=== PATIENT | female | born 1945 | race Caucasian/White ===

== ENCOUNTER 2018-04-06 06:12 | Day surgery (SDC) | payer MEDICARE, BC, SELFPAY ==
[2018-04-06] VITALS (7 sets, daily range): BP systolic 135–156; BP diastolic 55–69; PULSE 64–72; RESP 16; TEMP 36.3–36.5; O2SAT 96–100; BMI 25.7
--- NOTE | 2018-04-06 | LES_PTH ---
PATIENT: GEORGE PETERSON [place] [facility] [place][id number] AGE/SX: 72/F ROOM: RE04/06/[address]: Dr. Yann Locke MD : 1945 BED: DIS: 04/06/2018 SPEC #: [id number] RECD: 04/06/18 09:40 STATUS: AUGUSTUS ANDERSON #: [id number] PADMA: 04/06/18 00:[address]: Yann Locke DEPT: SURGICAL PATHOLOGY RECD BY: Amber Otto ENTERED: 04/06/18 10:18 SP TYPE: Lesion OTHR DR: Dr. Sanjay Holt MD Tissues: A - Skin of scalp, NOS B - Skin of scalp, NOS C - Skin of scalp, NOS Procedures: Frozen Section (charge) Surgery Specimen Level IV Frozen (no charge) HEADER OPERATION: Excision lesion, skin graft or flap, postauricular area PRE-OP DIAGNOSIS: 2 cm basal cell carcinoma scar left postauricular area by the earlobe with positive margins; 9 mm nodular lesion top of scalp TISSUE SUBMITTED: A ? Lesion top of scalp at vertex sent to lab for FS at 0936, B ? Left postauricular carcinoma scar, suture at 12 o?clock, C ? Basal cell carcinoma top of scalp, suture at 12 o?clock FROZEN SECTION DIAGNOSIS A. Lesion top of scalp, shave biopsy: Basal cell carcinoma. LIANE:miladis 04/06/18 MICROSCOPIC DIAGNOSIS A. Lesion top of scalp, shave biopsy: Basal cell carcinoma. B. Left postauricular carcinoma scar, excisional biopsy: Focal basal cell carcinoma, completely excised. Dermal fibrosis consistent with scar. C. Carcinoma of top of scalp, excisional biopsy: Basal cell carcinoma. See comment. Focal ulceration consistent with site of specimen A. Solar elastosis. SJ:miladis 04/07/18 COMMENT C. !2 o?clock tip is focally positive for tumor. Other margins are free of tumor. Case has been reviewed in consultation with Dr. Soto who concurs with the above diagnosis. IDC:AM MICROSCOPIC DESCRIPTION Slides are reviewed. GROSS DESCRIPTION A - Received fresh for frozen section diagnosis labeled with the patient's name is a specimen designated lesion at top of scalp. The specimen consists of a shave biopsy of menendez-white skin measuring 1 x 0.7 x 0.1 cm. The specimen is inked, serially sectioned and submitted entirely for frozen section diagnosis in one cassette. / : 04/06/18 B - Received in fixative is one container labeled with the patient's name and designated postauricular carcinoma scar, suture at 12 o'clock. The specimen consists of a menendez-white skin ellipse measuring 3.2 x 0.7 cm and up to 0.2 cm in thickness. The specimen has a suture identifying 12 o?clock position. The specimen is inked at follows: 12 o?clock tip ? yellow, 6 o?clock tip ? green, 3 o?clock margin ? black and 9 o?clock margin ? blue. The specimen is serially sectioned and submitted entirely in two cassettes. Cassette 1 contains the 6 and 12 o?clock tip. / : 04/06/18 C - Received in fixative is one container labeled with the patient's name and designated carcinoma top of scalp, suture at 12 o'clock. The specimen consists of a valeria-shaped piece of menendez-white skin measuring 2 x 1.5 cm and up to 0.5 cm in thickness. A focal area of ulceration is noted measuring 1 cm in greatest dimension consistent with site of specimen A. The specimen is inked as follows: 12-3 o?clock ? black, 3-9 o?clock ? blue, 6-9 o?clock ? green and 9-12 o?clock ? yellow. The specimen is serially sectioned and submitted entirely in two cassettes as follows: 1 ? 3, 6, 9 and 12 o?clock tips, 2 ? rest of the specimen. / : 04/06/18 TC:0 CPT: 61684 x3, 99098
--- NOTE | 2018-04-06 00:06 | PCM.HP.BLA ---
History and Physical Date of Admission: 04/06/18 HISTORY OR PRESENT ILLNESS 72 year old woman presents with a basal cell carcinoma left postauricular area by the earlobe. The lesion was biopsied on 11/18/17 which showed a basal cell carcinoma, nodular and micronodular, with positive margins. She underwent re-excision on 11/27/17 which showed residual basal cell carcinoma with positive margins. She presents today for further evaluation for surgical options for treatment. She also has concerns about a lesion on the top of scalp that is nodular with irregular borders. She denies any trauma. She denies any fever. She denies any recent infection. She denies any bleeding. PAST MEDICAL HISTORY Hearing problem PAST SURGICAL HISTORY Jaw fracture MEDICATIONS Tylenol. Motrin. MVI. Zoloft. ALLERGIES None. SOCIAL HISTORY Smoking Status: Never smoker alcohol intake: never substance use type: does not use FAMILY HISTORY Mother - , Kidney disease REVIEW OF SYSTEMS General - Denies fever, fatigue, and weight loss. Eyes - Denies cataracts and glaucoma. ENT - Denies nasal congestion and sore throat. Endocrine - Denies excessive thirst and urination. Skin - Has basal cell carcinoma left postauricular area by the earlobe with positive margins. Has enlarging lesion top of scalp. Musculoskeletal - Denies joint pain, joint stiffness, weakness of muscles and joints, back pain, and arthritis. Neuro - Denies headaches. Cardiovascular - Denies chest pain, fatigue, and shortness of breath with exertion. Psych - Denies anxiety and depression. Respiratory - Denies chronic cough and shortness of breath. Gastrointestinal - Denies nausea, vomiting, diarrhea, and constipation. Hematologic - Denies abnormal bruising and bleeding. Genitourinary - Denies hematuria and urinary frequency. PHYSICAL EXAMINATION General - Alert and Oriented HEENT - PERRL. EOMI. Throat is clear. On the left postauricular area by the earlobe is a 2 cm scar that is healed from previous excision basal cell carcinoma with positive margins. On the top of scalp is a 9 mm nodular lesion that has irregular borders. No ulceration. Lesion is nontender. Neck - Supple and nontender. No cervical adenopathy. No suspicious lesions noted. Lungs - Clear to auscultation. Heart - Regular rate and rhythm. Abdomen - Soft and nondistended. Extremities - FROM. No axillary adenopathy. Radial pulses are palpable. No suspicious lesions noted. Neuro - CN II-XII grossly intact. Psych - Normal mood and affect. ASSESSMENT 1. 2 cm basal cell carcinoma scar left postauricular area by the earlobe with positive margins. 2. 9 mm nodular lesion top of scalp. PLAN Recommend re-excision of this basal cell carcinoma scar left postauricular area by the earlobe with positive margins. Will excise with a 1 cm margin with probable skin grafting and possible skin flap reconstruction. Will also excise the lesion top of scalp and send to Pathology for analysis to rule out carcinoma. If carcinoma is present, then further excision will be done with skin grafting. Surgery will be done under local anesthesia and IV sedation on an outpatient basis. Patient was informed of the risks and complications of the procedure including alternatives to surgery. These were discussed with the patient personally. Patient voices understanding and wishes to proceed. Some of the risks and complications were included in a form from the [employer].
[2018-04-06] MEDS: Mupirocin Ointment 22gm Tube 1 APPLIC (09:59)
--- NOTE | 2018-04-06 10:32 | PCM.IMDPSTOP ---
Immediate Post-Op Note Date of Procedure: 04/06/18 Primary Surgeon/Physician: Yann Locke quarter doper: Kelvin Carroll. Pre-Operative Diagnosis: 1. 2 cm basal cell carcinoma scar left postauricular area by the earlobe with positive margins. 2. 9 mm nodular lesion top of scalp at vertex. Post-Operative Diagnosis: 1. 2 cm basal cell carcinoma scar left postauricular area by the earlobe with positive margins. 2. 9 mm basal cell carcinoma top of scalp at vertex. Surgery/Procedure Performed:: 1. Excision 2 cm basal cell carcinoma scar left postauricular area by the earlobe with FTSG reconstruction from left neck (8 cm2). 2. Excision 9 mm basal cell carcinoma top of scalp at vertex with rhomboid transposition scalp skin reconstruction (2.25 cm2). Description of Surgical Findings:: 72 year old woman presents with a basal cell carcinoma left postauricular area by the earlobe. The lesion was biopsied on 11/18/17 which showed a basal cell carcinoma, nodular and micronodular, with positive margins. She underwent re-excision on 11/27/17 which showed residual basal cell carcinoma with positive margins. She presents today for further evaluation for surgical options for treatment. She also has concerns about a lesion on the top of scalp that is nodular with irregular borders. She denies any trauma. She denies any fever. She denies any recent infection. She denies any bleeding. Today the patient underwent excision 2 cm basal cell carcinoma scar left postauricular area by the earlobe with FTSG reconstruction from left neck (8 cm2) and excision 9 mm basal cell carcinoma top of scalp at vertex with rhomboid transposition scalp skin reconstruction (2.25 cm2). Frozen section top of scalp at the vertex - basal cell carcinoma. Estimated Blood Loss: 10 ml. Specimen's removed: 1. Basal cell carcinoma scar left post-auricular area by earlobe to Pathology. 2. Lesion top of scalp at vertex to Pathology as a frozen section. 3. Basal cell carcinoma top of scalp at vertex to Pathology. Drains: None. Type of Anesthesia:: Local MAC - xylocaine with epinephrine and IV sedation. - Admit VTE Documentation VTE Present on Admission: No VTE Mechan Device Prophylaxis: SCD's VTE Pharm Prophylaxis ordered?: No
--- NOTE | 2018-04-06 10:39 | PCM.DC ---
You will use the following diet at home:: No restrictions Discharge Activity: - - keep head elevated. no heavy lifting. May shower in (days): 6 - may shower after the skin graft dressing removed left ear. May resume sexual activity in: No Restrictions Weight Bearing Status: Weight bearing as tolerated Lifting Restrictions: 10 lbs. Keep extremity elevated above heart level: - - elevate head. Call your doctor if your incision/area has: Continuous Slow Oozing, Sudden Increased Bleeding, Increased Pain/ Swelling, Increased Redness, Foul Smelling Discharge, Swelling at the incision site Call your doctor if you observe: Fever of 101 or Higher, Coldness, Increased Pain, Shortness of breath, Chest pain, Calf discomfort, Uncontrolled pain Change Dressing in (Days):: 2 - left neck dressing only. Remove Dressing in (days):: 6 - will remove skin graft dressing left ear in office. Cleanse incision/area with: - - may get skin graft wet in the shower after the skin graft dressing left ear removed in office. Allergies/Adverse Reactions: Allergies No Known Allergies Allergy (Verified 03/30/18 09:47) Medications to take at Discharge Acetaminophen [Tylenol] 500 - 1,000 mg PO Q6H PRN PRN 03/30/18 Multivitamin [Multiple Vitamins] 1 each PO DAILY 03/30/18 Sertraline HCl [Zoloft] 50 mg PO DAILY 03/30/18 Clindamycin HCl [Cleocin] 300 mg PO TID #21 cap 04/06/18 Lactobacillus Acidophilus/Fos [Acidophilus Probiotic Tablet] 1 ea PO BID #20 tab 04/06/18 Oxycodone HCl/Acetaminophen [Percocet 5/325] 1 tab PO 4X/DAY PRN PRN 5 Days #20 tab 04/06/18 The following prescriptions were given: Oxycodone HCl/Acetaminophen [Percocet 5/325] 1 tab PO 4X/DAY PRN PRN 5 Days #20 tab PRN Reason: Pain Lactobacillus Acidophilus/Fos [Acidophilus Probiotic Tablet] 1 ea PO BID #20 tab Clindamycin HCl [Cleocin] 300 mg PO TID #21 cap Primary Care Physician: Sanjay Holt MD [Primary Care Provider] - Test Results: Test results from this visit will be discussed in further detail at your follow-up appointment, if applicable. Please Follow Up With: Yann Locke MD When: thursday04/12/18. call [phone] for appt. Proposed Discharge Date: 04/06/18
--- NOTE | 2018-04-06 19:38 | PCM.OPRPT ---
Report of Operation Date of Procedure: 04/06/18 Pre-Operative Diagnosis: 1. 2 cm basal cell carcinoma scar left postauricular area by the earlobe with positive margins. 2. 9 mm nodular lesion top of scalp at vertex. Post-Operative Diagnosis: 1. 2 cm basal cell carcinoma scar left postauricular area by the earlobe with positive margins. 2. 9 mm basal cell carcinoma top of scalp at vertex. Surgery/Procedure Performed:: 1. Excision 2 cm basal cell carcinoma scar left postauricular area by the earlobe with FTSG reconstruction from left neck (8 cm2). 2. Excision 9 mm basal cell carcinoma top of scalp at vertex with rhomboid transposition scalp skin reconstruction (2.25 cm2). Description of Surgical Findings:: 72 year old woman presents with a basal cell carcinoma left postauricular area by the earlobe. The lesion was biopsied on 11/18/17 which showed a basal cell carcinoma, nodular and micronodular, with positive margins. She underwent re-excision on 11/27/17 which showed residual basal cell carcinoma with positive margins. She presents today for further evaluation for surgical options for treatment. She also has concerns about a lesion on the top of scalp that is nodular with irregular borders. She denies any trauma. She denies any fever. She denies any recent infection. She denies any bleeding. Patient was informed of the risks and complications of the procedure including alternatives to surgery. These were discussed with the patient personally. Patient voices understanding and wishes to proceed. Some of the risks and complications were included in a form from the [employer]. Frozen section top of scalp at the vertex - basal cell carcinoma. rod buster: Kelvin Carroll. Type of Anesthesia:: Local MAC - xylocaine with epinephrine and IV sedation. Specimen's removed: 1. Basal cell carcinoma scar left post-auricular area by earlobe to Pathology. 2. Lesion top of scalp at vertex to Pathology as a frozen section. 3. Basal cell carcinoma top of scalp at vertex to Pathology. Drains: None. Estimated Blood Loss (mL): 10 ml. Description of Procedure: Patient was taken to OR in supine position and was given IV sedation. The left postauricular area and left neck area were prepped and draped in the usual fashion. SCD's were placed for DVT prophylaxis. Perioperative antibiotics were given intravenously. The left postauricular area and left neck area were infiltrated with xylocaine and epinephrine. After waiting 5 minutes for the anesthetic to take effect, I excised the basal cell carcinoma scar left postauricular area with a 1 cm margin in all directions. This made it a 4 cm excision. Some of the excision extended onto the posterior ear. A suture was marked at the 12 oclock position for pathology orientation. The lesion was sent to Pathology for analysis to rule out carcinoma at the margins. The size of the defect for skin grafting is 4 x 2 cm or 8 cm2. Hemostasis was obtained with electrocautery. I excised an ellipse of skin in the left neck down into the subcutaneous tissue. The subcutaneous tissue was removed from the undersurface of the dermis, thus making it a full thickness skin graft. The skin graft was placed in saline. The donor incision was closed in multiple layers after hemostasis was obtained with electrocautery. The deep dermis and subcutaneous tissue was approximated with 5-0 Monocryl interrupted sutures. The skin was approximated with 5-0 Prolene and 6-0 Prolene vertical mattress interrupted sutures. Antibiotic ointment was applied followed by an Op-Site dressing. The full thickness skin graft was applied to the left postauricular defect and secured to the skin edges with 4-0 Chromic simple interrupted sutures. 4-0 Chromic sutures were also used for central quilting stabilization. Antibiotic ointment was applied to the skin graft followed by xeroform gauze and cotton balls soaked in saline and secured to the skin with 4-0 Nylon tie over stent suture dressings. The patient was then placed in the lateral position to expose the lesion on the top of scalp at the vertex. This area was prepped and draped in the usual fashion. Using xylocaine with epinephrine, the lesion was infiltrated. After waiting 5 minutes for the anesthetic to take effect, the lesion top of scalp at the vertex was excised in an intradermal fashion and sent to Pathology for analysis as a frozen section. Frozen section showed a basal cell carcinoma. Therefore additional excision will be done. I shaw a rhomboid design with a 3 mm margin in all directions. Additional excision was done and a suture was placed at 12 oclock position for pathology orientation. The lesion was then sent to Pathology for analysis to rule out carcinoma at the margins. I designed a rhomboid flap adjacent to the defect. Incisions were made and a rhomboid flap was elevated at the level of the underlying galea and easily transposed into the defect with minimal tension and minimal distortion. Hemostasis was obtained with electrocautery. The rhomboid flap was transposed into the scalp skin defect and secured in multiple layers with 5-0 Monocryl interrupted sutures for the deep dermis and subcutaneous tissue. The scalp skin was approximated with 5-0 Monocryl interrupted sutures. Antibiotic ointment was applied to the sutures. The size of the defect and the size of the flap required to close the defect was 2.25 cm2. Patient tolerated the procedure well and was sent to PACU in satisfactory condition. She will be sent home on antibiotics and pain medication. She will keep her head elevated during the initial postop period. She will followup in the office in a week for a wound check with removing the skin graft dressing as well as to discuss the pathology report and to remove the sutures. Grafts/Implants Used: None. - Complications None. - Admit VTE Documentation VTE Present on Admission: No VTE Mechan Device Prophylaxis: SCD's VTE Pharm Prophylaxis ordered?: No Code Visit Surgery Charges CPT - 43670 ICD-10 - C44.219 48839 C44.219 66989 C44.41
== END 2018-04-06 12:12 | disposition home or self-care (01) ==
LOC: SDC 06:12 → AC 06:14
PROVIDERS: Family Provider Family Medicine; PCP Family Medicine; Visit Provider Surgery
DX: C44.219 Basal cell carcinoma of skin of left ear and external auricular canal (principal); C44.41 Basal cell carcinoma of skin of scalp and neck; F41.9 Anxiety disorder, unspecified; F32.9 Major depressive disorder, single episode, unspecified; E78.00 Pure hypercholesterolemia, unspecified; Z79.899 Other long term (current) drug therapy
CPT/HCPCS: 11642; 14020; 15260; 88305; 88331; J7120

== ENCOUNTER 2018-06-08 06:23 | Day surgery (SDC) | payer MEDICARE, BC, SELFPAY ==
--- NOTE | 2018-06-07 17:32 | PCM.HP.BLA ---
History and Physical Date of Admission: 06/08/18 HISTORY OR PRESENT ILLNESS 73 year old woman initially presented with a basal cell carcinoma left postauricular area by the earlobe. The lesion was biopsied on 11/18/17 which showed a basal cell carcinoma, nodular and micronodular, with positive margins. She underwent re-excision on 11/27/17 which showed residual basal cell carcinoma with positive margins. She also had concerns about a lesion on the top of scalp that was nodular with irregular borders. She underwent excision on 04/06/18 and both lesions showed basal cell carcinoma. The lesion top of scalp at vertex showed positive margins. She presents today for further excision of her basal cell carcinoma top of scalp at vertex with positive margins and skin grafting. PAST MEDICAL HISTORY Hearing problem basal cell carcinoma, nodular and micronodular, left postauricular area by the earlobe. basal cell carcinoma top of scalp at vertex. PAST SURGICAL HISTORY Jaw fracture excision 2 cm basal cell carcinoma scar left postauricular area by the earlobe with FTSG reconstruction from left neck (8 cm2) and excision 9 mm basal cell carcinoma top of scalp at vertex with rhomboid transposition scalp skin reconstruction (2.25 cm2) - 04/06/18 MEDICATIONS Tylenol. Motrin. MVI. Zoloft. ALLERGIES None. SOCIAL HISTORY Smoking Status: Never smoker alcohol intake: never substance use type: does not use FAMILY HISTORY Mother - , Kidney disease REVIEW OF SYSTEMS General - Denies fever, fatigue, and weight loss. Eyes - Denies cataracts and glaucoma. ENT - Denies nasal congestion and sore throat. Endocrine - Denies excessive thirst and urination. Skin - Has basal cell carcinoma left postauricular area by the earlobe with positive margins that was re-excised on 04/06/18. Has basal cell carcinoma top of scalp that was excised on 04/06/18 and had positive margins. Musculoskeletal - Denies joint pain, joint stiffness, weakness of muscles and joints, back pain, and arthritis. Neuro - Denies headaches. Cardiovascular - Denies chest pain, fatigue, and shortness of breath with exertion. Psych - Denies anxiety and depression. Respiratory - Denies chronic cough and shortness of breath. Gastrointestinal - Denies nausea, vomiting, diarrhea, and constipation. Hematologic - Denies abnormal bruising and bleeding. Genitourinary - Denies hematuria and urinary frequency. PHYSICAL EXAMINATION General - Alert and Oriented HEENT - PERRL. EOMI. Throat is clear. On the left postauricular area by the earlobe is a healed skin graft from recent excision of basal cell carcinoma. On the top of scalp at vertex is a healed skin flap from recent excision of basal cell carcinoma with positive margins at 12 oclock. The length of the scar where the positive margin is located superiorly is 3 cm. Neck - Supple and nontender. No cervical adenopathy. No suspicious lesions noted. Lungs - Clear to auscultation. Heart - Regular rate and rhythm. Abdomen - Soft and nondistended. Extremities - FROM. No axillary adenopathy. Radial pulses are palpable. No suspicious lesions noted. Neuro - CN II-XII grossly intact. Psych - Normal mood and affect. ASSESSMENT 1. 3 cm basal cell carcinoma scar top of scalp at vertex with positive margins. 2. Personal history of skin cancer. PLAN Recommend re-excision of this basal cell carcinoma top of scalp at vertex and send the lesion to pathology for analysis to rule out carcinoma at the margins. Reconstruction will be with possible skin grafting. The positive margin is at the 12 oclock position. Surgery will be done under local anesthesia and IV sedation on an outpatient basis. Patient was informed of the risks and complications of the procedure including alternatives to surgery. These were discussed with the patient personally. Patient voices understanding and wishes to proceed. Some of the risks and complications were included in a form from the [employer].
[2018-06-08 06:57] VITALS: BP 141/59; PULSE 70; RESP 16; TEMP 36.8; O2SAT 100; BMI 25.9
--- NOTE | 2018-06-08 08:00 | LES_PTH ---
PATIENT: GEORGE PETERSON [place] [facility] [place][id number] AGE/SX: 73/F ROOM: RE06/08/[address]: Dr. Yann Locke MD : 1945 BED: DIS: 06/08/2018 SPEC #: [id number] RECD: 06/08/18 11:40 STATUS: AUGUSTUS ANDERSON #: [id number] PADMA: 06/08/18 08:[address]: Yann Locke DEPT: SURGICAL PATHOLOGY RECD BY: Patience Bates ENTERED: 06/08/18 12:06 SP TYPE: Lesion OTHR DR: Dr. Sanjay Holt MD Tissues: Skin of scalp, NOS Procedures: Surgery Specimen Level IV HEADER OPERATION: Excision basal cell cancer top of scalp at vertex with layer PRE-OP DIAGNOSIS: Basal cell carcinoma, top of scalp at vertex with positive margins TISSUE SUBMITTED: Basal cell cancer, top of scalp at vertex, suture at 12 o'clock MICROSCOPIC DIAGNOSIS Basal cell cancer, top of scalp at vertex, excisional biopsy: Negative for residual carcinoma. Dermal fibrosis, chronic inflammation and foreign body giant cell reaction, consistent with previous biopsy site. Solar elastosis. SJ:rg 06/09/18 COMMENT Please make reference to previous specimen ([id number]) lesion top of scalp, shave biopsy and carcinoma top of scalp, excisional biopsy with diagnosis of basal cell carcinoma and left postauricular carcinoma scar, excisional biopsy with diagnosis of focal basal cell carcinoma. MICROSCOPIC DESCRIPTION Slides are reviewed. GROSS DESCRIPTION Received in fixative is one container labeled with the patient's name and designated basal cell cancer, top of scalp at vertex, suture at 12 o'clock. The specimen consists of a menendez-white skin ellipse measuring 3.5 x 1 cm and up to 0.3 cm in thickness. The specimen is inked as follows: 12 o'clock - black, 6 o'clock - blue, 3 o'clock tip - green and 9 o'clock tip - yellow. The specimen is serially sectioned and submitted entirely in two cassettes. Cassette 1 also contains the 3 o'clock tip and cassette 2 also contains the 9 o'clock tip. / LIANE:miladis 06/08/18 TC:5 CPT: 10054
[2018-06-08] MEDS: Mupirocin Ointment 22gm Tube 1 APPLIC (08:54)
--- NOTE | 2018-06-08 09:06 | PCM.IMDPSTOP ---
Immediate Post-Op Note Date of Procedure: 06/08/18 Primary Surgeon/Physician: Yann Locke assistant project manager: None Pre-Operative Diagnosis: 1. 3 cm basal cell carcinoma scar top of scalp at vertex with positive margins. 2. Personal history of skin cancer. Post-Operative Diagnosis: Same. Surgery/Procedure Performed:: Excision 3 cm basal cell carcinoma scar top of scalp at vertex with positive margins with 4 cm layered closure. Description of Surgical Findings:: 73 year old woman initially presented with a basal cell carcinoma left postauricular area by the earlobe. The lesion was biopsied on 11/18/17 which showed a basal cell carcinoma, nodular and micronodular, with positive margins. She underwent re-excision on 11/27/17 which showed residual basal cell carcinoma with positive margins. She also had concerns about a lesion on the top of scalp that was nodular with irregular borders. She underwent excision on 04/06/18 and both lesions showed basal cell carcinoma. The lesion top of scalp at vertex showed positive margins. Today the patient underwent excision 3 cm basal cell carcinoma scar top of scalp at vertex with positive margins with 4 cm layered closure. Estimated Blood Loss: 15 ml. Specimen's removed: Basal cell carcinoma scar top of scalp at vertex to Pathology. Drains: None. Type of Anesthesia:: Local MAC - xylocaine with epinephrine and IV sedation. - Admit VTE Documentation VTE Present on Admission: No VTE Mechan Device Prophylaxis: SCD's VTE Pharm Prophylaxis ordered?: No
--- NOTE | 2018-06-08 09:16 | PCM.DC ---
You will use the following diet at home:: No restrictions Discharge Activity: May not drive while taking narcotic pain medications., May Shower - in two days., - - keep head elevated. no heavy lifting. May shower in (days): 2 May resume sexual activity in: No Restrictions Weight Bearing Status: Weight bearing as tolerated Lifting Restrictions: 20 lbs. Keep extremity elevated above heart level: - - elevate head. Call your doctor if your incision/area has: Continuous Slow Oozing, Sudden Increased Bleeding, Increased Pain/ Swelling, Increased Redness, Foul Smelling Discharge, Swelling at the incision site Call your doctor if you observe: Fever of 101 or Higher, Coldness, Increased Pain, Shortness of breath, Chest pain, Calf discomfort, Uncontrolled pain Suture Line Care: - - apply antibiotic ointment to suture line daily. Cleanse incision/area with: - - may get incision wet in the shower in two days. Allergies/Adverse Reactions: Allergies No Known Allergies Allergy (Verified 05/25/18 12:02) Medications to take at Discharge Acetaminophen [Tylenol] 500 - 1,000 mg PO Q6H PRN PRN 03/30/18 Multivitamin [Multiple Vitamins] 1 each PO DAILY 03/30/18 Sertraline HCl [Zoloft] 50 mg PO DAILY 03/30/18 Clindamycin HCl [Cleocin] 300 mg PO TID #21 cap 06/08/18 Lactobacillus Acidophilus/Fos [Acidophilus Probiotic Tablet] 1 ea PO BID #20 tab 06/08/18 Oxycodone HCl/Acetaminophen [Percocet 5/325] 1 tab PO 4X/DAY PRN PRN 7 Days #20 tab 06/08/18 The following prescriptions were given: Oxycodone HCl/Acetaminophen [Percocet 5/325] 1 tab PO 4X/DAY PRN PRN 7 Days #20 tab PRN Reason: Pain Lactobacillus Acidophilus/Fos [Acidophilus Probiotic Tablet] 1 ea PO BID #20 tab Clindamycin HCl [Cleocin] 300 mg PO TID #21 cap Primary Care Physician: Sanjay Holt MD [Primary Care Provider] - Test Results: Test results from this visit will be discussed in further detail at your follow-up appointment, if applicable. Please Follow Up With: Yann Locke MD When: one week. call [phone] for appt. Proposed Discharge Date: 06/08/18
--- NOTE | 2018-06-08 09:19 | DCINST_ITS ---
You will use the following diet at home:: No restrictions Discharge Activity: May not drive while taking narcotic pain medications., May Shower - in two days., - - keep head elevated. no heavy lifting. May shower in (days): 2 May resume sexual activity in: No Restrictions Weight Bearing Status: Weight bearing as tolerated Lifting Restrictions: 20 lbs. Keep extremity elevated above heart level: - - elevate head. Call your doctor if your incision/area has: Continuous Slow Oozing, Sudden Increased Bleeding, Increased Pain/ Swelling, Increased Redness, Foul Smelling Discharge, Swelling at the incision site Call your doctor if you observe: Fever of 101 or Higher, Coldness, Increased Pain, Shortness of breath, Chest pain, Calf discomfort, Uncontrolled pain Suture Line Care: - - apply antibiotic ointment to suture line daily. Cleanse incision/area with: - - may get incision wet in the shower in two days. Allergies/Adverse Reactions: Allergies No Known Allergies Allergy (Verified 05/25/18 12:02) Medications to take at Discharge Acetaminophen [Tylenol] 500 - 1,000 mg PO Q6H PRN PRN 03/30/18 Multivitamin [Multiple Vitamins] 1 each PO DAILY 03/30/18 Sertraline HCl [Zoloft] 50 mg PO DAILY 03/30/18 Clindamycin HCl [Cleocin] 300 mg PO TID #21 cap 06/08/18 Lactobacillus Acidophilus/Fos [Acidophilus Probiotic Tablet] 1 ea PO BID #20 tab 06/08/18 Oxycodone HCl/Acetaminophen [Percocet 5/325] 1 tab PO 4X/DAY PRN PRN 7 Days #20 tab 06/08/18 The following prescriptions were given: Oxycodone HCl/Acetaminophen [Percocet 5/325] 1 tab PO 4X/DAY PRN PRN 7 Days #20 tab PRN Reason: Pain Lactobacillus Acidophilus/Fos [Acidophilus Probiotic Tablet] 1 ea PO BID #20 tab Clindamycin HCl [Cleocin] 300 mg PO TID #21 cap Primary Care Physician: Sanjay Holt MD [Primary Care Provider] - Test Results: Test results from this visit will be discussed in further detail at your follow- up appointment, if applicable. Please Follow Up With: Yann Locke MD When: one week. call [phone] for appt. Proposed Discharge Date: 06/08/18
[2018-06-08 09:20] VITALS: BP 136/74; BP 141/59; PULSE 66; RESP 16; TEMP 35.8; O2SAT 100
[2018-06-08 09:25] VITALS: BP 135/76; BP 141/59; PULSE 63; RESP 16; O2SAT 100
[2018-06-08 09:30] VITALS: BP 135/71; BP 141/59; PULSE 65; RESP 16; O2SAT 100
[2018-06-08 09:35] VITALS: BP 139/66; BP 141/59; PULSE 61; RESP 16; TEMP 36.1; O2SAT 100
[2018-06-08 10:47] VITALS: BP 141/59
--- NOTE | 2018-06-09 20:56 | OP.PCM_ITS ---
Report of Operation Date of Procedure: 06/08/18 Pre-Operative Diagnosis: 1. 3 cm basal cell carcinoma scar top of scalp at vertex with positive margins. 2. Personal history of skin cancer. Post-Operative Diagnosis: Same. Surgery/Procedure Performed:: Excision 3 cm basal cell carcinoma scar top of scalp at vertex with positive margins with 4 cm layered closure. Description of Surgical Findings:: 73 year old woman initially presented with a basal cell carcinoma left postauricular area by the earlobe. The lesion was biopsied on 11/18/17 which showed a basal cell carcinoma, nodular and micronodular, with positive margins. She underwent re-excision on 11/27/17 which showed residual basal cell carcinoma with positive margins. She also had concerns about a lesion on the top of scalp that was nodular with irregular borders. She underwent excision on 04/06/18 and both lesions showed basal cell carcinoma. The lesion top of scalp at vertex showed positive margins. Patient was informed of the risks and complications of the procedure including alternatives to surgery. These were discussed with the patient personally. Patient voices understanding and wishes to proceed. Some of the risks and complications were included in a form from the [employer]. digital production artist: None Type of Anesthesia:: Local MAC - xylocaine with epinephrine and IV sedation. Specimen's removed: Basal cell carcinoma scar top of scalp at vertex to Pathology. Drains: None. Estimated Blood Loss (mL): 15 ml. Description of Procedure: Patient was taken to OR in supine position and was given IV sedation. She was then placed in the lateral postion. The top of scalp at vertex and left neck were prepped and draped in the usual fashion. SCD's were placed for DVT prophylaxis. Perioperative antibiotics were given intravenously. The basal cell carcinoma scar top of scalp at vertex was infiltrated with xylocaine and epinephrine. After waiting 5 minutes for the anesthetic to take effect, I made an elliptical excision around the superior aspect of the healing flap incision with a 3 mm margin in all directions thus making it a 3.6 cm excision. A suture was marked at the 12 oclock position for pathology orientation. The previous pathology report showed focally positive basal cell carcinoma at the 12 oclock position. Since the flap had healed so well up to this point, I left the inferior aspect of the flap incision alone since the margins inferiorly were negative. The specimen was then sent to Pathology for analysis to rule out carcinoma at the margins. Hemostasis was obtained with electrocautery. My initial intentions were to skin graft the defect because of its location at the vertex. However after the re-excision, I was able to bring the skin edges together with minimal tension with a primary closure without having to resort to a skin graft. The wound was then closed in a layered fashion using 5-0 Monocryl interrupted sutures for the deep dermis and subcutaneous tissue. The skin was approximated with 5-0 Prolene simple interrupted and vertical mattress interrupted sutures. I also had some 4-0 Nylon on the back table and used that for a couple of interrupted sutures for the closure as well. The length of the layered closure was 4 cm. Antibiotic ointment was applied to the suture line. Patient tolerated the procedure well and was sent to PACU in satisfactory condition. Patient will be sent home on antibiotics and pain medication. She will keep her head elevated during the initial postop period. Patient will followup in a week for a wound check and for discussion of the pathology report. I will remove the sutures in 2 weeks. Grafts/Implants Used: None. - Complications None. - Admit VTE Documentation VTE Present on Admission: No VTE Mechan Device Prophylaxis: SCD's VTE Pharm Prophylaxis ordered?: No Code Visit Surgery Charges CPT - 55007 ICD-10 - C44.41, Z85.828 67954 C44.41, Z85.828
== END 2018-06-08 10:47 | disposition home or self-care (01) ==
LOC: SDC 06:23 → AC 06:25
PROVIDERS: Family Provider Family Medicine; PCP Family Medicine; Referring Provider Surgery; Visit Provider Surgery
PROC: (CPT 11624; principal; 2018-06-08 07:45)
DX: C44.41 Basal cell carcinoma of skin of scalp and neck (principal); L57.8 Other skin changes due to chronic exposure to nonionizing radiation; E78.00 Pure hypercholesterolemia, unspecified; F41.9 Anxiety disorder, unspecified; F32.9 Major depressive disorder, single episode, unspecified; Z79.899 Other long term (current) drug therapy
CPT/HCPCS: 00300; 11624; 12032; 88305; J7120

== ENCOUNTER 2024-03-30 12:13 | Inpatient (IN) | payer MEDICARE, BC, SELFPAY ==
[2024-03-30 12:29] VITALS: BP 147/61; PULSE 106; RESP 16; TEMP 37; O2SAT 93; BMI 25.4
--- NOTE | 2024-03-30 13:08 | HP.PCM_ITS ---
[facility] - General General Date of Admission: 03/30/24 Date of Service: 03/30/24 Chief Complaint: Debility due to L TKA on 03/25/[address] Yeager. HPI Narrative GEORGE PETERSON, is a 78 YO F with a PMH of anxiety, jaw fracture (traumatic in 2022), TIA in 2013, cystocele/urethrocele/uterovaginal prolapse, HTN (no longer takes medication for this), presbycusis and osteoarthritis who underwent a left total knee replacement on 03/25/[address] Yeager at [facility]. Post operatively she had tachycardia and she was treated with Xanax and IVF's. An ECHO and cardiac labs were ordered. Troponins were negative and the EKG had nonspecific ST and T wave abnormalities only. ECHO showed a mildly dilated LV with stage 1 diastolic dysfunction. EF was 72%. There were no wall motion abnormalities and the atria were of normal size. There was mild TR and mild MR. She had a Scott cath inserted post operatively for urine retention. It was removed on 03/26 and reinserted on 03/28. She has a Scott present at admission to rehab. She lives alone and was Independent with a ADL's prior to the surgery. She was transferred to the acute inpt rehab unit at [facility] on 03/30/24 for 3 hours of therapy daily to restore function/independence at or near her level prior to the TKA. Vital signs at presentation to rehab or blood pressure 147/61, heart rate 106, respiratory rate 16. She is afebrile and her pulse ox on room air is 93%. She is anxious. Denies need for pain medication but, requested ice be applied to the left knee. She brought her polar care with her. She ate 75-100% of her lunch. [facility] Medical History (Updated 03/30/24 @ 14:[address] 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 Cystocele History of hypertension History of TIA (transient ischemic attack) Anxiety Presbycusis of both ears Actinic keratosis Benign keratosis of skin Basal cell carcinoma (BCC) of scalp Basal cell carcinoma (BCC) of left postauricular region Home Medications ?Medication ?Instructions ?Recorded ?Last Taken ?Type acetaminophen 500 mg tablet 1,000 mg PO Q8H PRN PRN Pain 03/30/18 03/30/24 History multivitamin 1 ea PO DAILY supplement 03/30/18 Unknown History ascorbic acid (vitamin C) 500 mg 500 mg PO BID supplement 03/30/24 03/30/24 History capsule aspirin 81 mg tablet,delayed 81 mg PO BID DVT prophylaxis 03/30/24 03/30/24 History release (Adult Low Dose Aspirin) glucosamine-chondroitin 250 mg-200 1 tab PO BID supplement 03/30/24 Unknown Hi story mg tablet oxycodone 5 mg capsule 5 - 10 mg PO Q6H pain 03/30/24 03/29/24 History polyethylene glycol 3350 17 17 g PO DAILY PRN constipation 03/30/24 Unknown History gram/dose oral powder (Miralax) vitamin E (dl, acetate) 180 mg 180 mg PO BID supplement 03/30/24 Unknown History (400 unit) capsule Allergy/AdvReac Type Severity Reaction Status Date / Time No Known Allergies Allergy Verified 10/25/20 14:45 Family History Mother Kidney disease Surgical History (Updated 03/30/24 @ 13:[address] Alejandra Grimm DO) History of basal cell carcinoma excision Jaw fracture Social History (Updated 03/30/24 @ 14:[address] Alejandra Grimm DO) household members: none and other details: 2021. housing: house number of children: 3 Smoking Status: Never smoker alcohol intake: current alcohol intake frequency: holidays/special occasions only substance use type: does not use ROS Constitutional Constitutional: Reports other Details: Tells me that she has had decreased appetite the past few days. ; Denies change in weight, chills, fatigue, fever(s), night sweats or weakness Eyes Eyes: Denies blurry vision, change in vision, eye pain or loss of vision ENT HEENT: Reports abnormal hearing and hearing loss; Denies dysphagia, headache(s), nasal congestion or sore throat Cardiovascular Cardiovascular: Denies chest pain, dyspnea on exertion, edema, lightheadedness, orthopnea, palpitations, paroxysmal nocturnal dyspnea or syncope Respiratory/Chest Respiratory/Chest: Denies cough, dyspnea, shortness of breath at rest, shortness of breath with exertion or wheezing Gastrointestinal Gastrointestinal: Reports constipation; Denies abdominal pain, diarrhea, dyspepsia, hematemesis, hematochezia, nausea or vomiting Genitourinary Genitourinary: Reports other Details: Urine retention. Has a history of cystocele and urethrocele. ; Denies dysuria, hematuria, nocturia, urinary frequency, urinary hesitancy, ur inary incontinence or urinary urgency Musculoskeletal Musculoskeletal: Reports difficulty walking, joint pain, joint swelling and other Details: Has been having some right knee pain, possibly secondary to over reliance on the right lower extremity due to severe left knee pain prior to this surgery. ; Denies back pain or neck pain Neurologic Neurologic: Denies confusion, disequilibrium, dizziness, focal weakness, headache(s), paresthesias, seizures or tremor(s) Psychiatric Psychiatric: Reports anxiety and other Details: Tells me that she is sleeping well. Appetite is decreased. Heart is racing at times and she has had anxiety in the past. Treated with Xanax in the past by PCP.........tells me that she was weaned off because she was taking too much. Not chronically on anything for anxiety. ; Denies depression, homicidal ideation or suicidal ideation Endocrine Endocrinology: Denies change in body appearance, polydipsia or polyuria Hematologic/Lymphatic Hematologic/Lymphatic: Denies easy bleeding, easy bruising or lymphadenopathy Allergic/Immunologic Allergic/Immunologic: Denies rhinitis, eczemia or asthma Vital Signs Vital Signs Vital Signs: 03/30/24 12:29 Temperature 98.6 F Temperature Source Temporal Pulse Rate 106 H Respiratory Rate 16 Blood Pressure 147/61 H Blood Pressure Mean 89 Blood Pressure Position Semi-Fowlers Blood Pressure Location Right Arm Pulse Ox 93 Oxygen Delivery Method Room Air Weight Weight: 139 lb 3.2 oz Body Mass Index (BMI) 25.4 Physical Exam Const alert, oriented x3 and no apparent distress Constitutional Narrative: Seems a little anxious. She is NOME and has hearing aids but, she does not think they work very well. Lying in bed. Scott catheter is in place for urine retention. General Appearance: cooperative and well kempt HEENT normocephalic, head/scalp atraumatic and moist oral mucous membranes HEENT Narrative: No evidence of thrush Head and Scalp: normocephalic Eyes PERRL, EOMs intact bilaterally, conjunctivae normal and no scleral icterus Eyes Narrative: No DC from the eyes and no mattering of the eyelashes. No visual field cuts. General Eye: normal appearance of both eyes Neck supple and No nodes Neck Narrative: Soft BL carotid bruits L>R. Brisk carotid upstroke with good pulse volume bilaterally. General: anterior neck swelling Chest Chest: symmetrical chest wall rise Resp normal respiratory effort, normal air movement, no use of accessory muscles and clear to auscultation bilaterally Resp Narrative: Not tachypneic. No cough with deep inspiration. Effort and Inspection: able to speak in complete sentences Cardio regular rhythm, S1 normal heart sound, S2 normal heart sound, no murmurs, no rub, no gallops and peripheral pulses 2+ throughout Cardio Narrative: Mildly tachycardic with heart rate ranging from 100-105. No ectopy. Denies chest pain and shortness of breath. no CVA tenderness Narrative: Denies suprapubic pain. Scott catheter is in place for urine retention. The urine in the Scott tubing is pale yellow and clear. Extremity normal capillary refill and no calf tenderness Extremity Narrative: The left knee and the left leg distal to the knee are swollen. No calf tenderness on the left. No clubbing or cyanosis. Peripheral pulses are 2+ throughout. Skin General Skin Exam: no breakdown Rashes: no rashes Neuro oriented x3, CN's II-XII intact bilaterally and moves all extremities Psych mental status grossly normal, cooperative, speech normal, denies hallucinations and denies suicidal ideation Psych Narrative: Anxious with increased heart rate Activity / Motor Behavior: appropriate eye contact Speech: normal speech Assessment & Plan Assessment/Plan (1) Physical debility: (2) Osteoarthritis: QUALIFIERS: Osteoarthritis location: multiple joints Osteoarthritis type: primary Qualified Code(s): M15.0 - Primary generalized (osteo)arthritis (3) History of knee replacement procedure of left knee: (4) Urine retention: (5) Anxiety: (6) Tachycardia: (7) Grade I diastolic dysfunction: (8) History of hypertension: (9) Bilateral carotid bruits: PLAN: No heart murmur. PLAN: Plan PLAN PT for gait stability OT for ADL's ST for evaluation Analgesics as needed Bowel protocol Fall precautions Assess for Anxiety/Depression GI prophylaxis -not necessary at this time. She denies any history of peptic ulcer disease and also denies nausea/vomiting/epigastric pain/heartburn. DVT prophylaxis with ASA 81 mg p.o. twice daily per orthopedics Follow up with Dr. Holt and Dr. Yeager following DC from [facility] Rehab AM lab including CMP, CBC, Mag, lipid profile and Phos ordered voiding trial in another 1-2 days. UA today. Would consider Carotid US as OP following DC from rehab to evaluate for carotid stenosis since she has no heart MM and I hear bruits in both carotids. suspect the Diastolic dysfunction may be related to uncontrolled HTN. HR and BP increase with stress and she is not on an antihypertensive. She used to be. She has a long hx of anxiety and is not currently being treated for anxiety Monitor the BP and HR closely over the next 48 hours and if elevated and continues to be anxious consider an SSRI. PRN xanax for anxiety but, if she is needing to take this more than a couple times will start an SSRI Compounded arthritis cream containing baclofen, lidocaine and Voltaren to the right knee twice daily Charges/Coding Visit Charges Inpatient E&M: 43698 Init Hosp L2
[2024-03-30] MEDS: Acetaminophen 500 MG Tablet 1000 MG PO ×2 (13:39→21:36)
--- NOTE | 2024-03-30 14:10 | PCM.RU.PYE ---
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 Potential Problem List:: DVT, Bleeding, Infection, UTI, Aspiration, Falls, Skin Integrity and Depression Risk of Complications DVT: YASMINE Hose and - (Aspirin 81 mg p.o. twice daily per orthopedics) Bleeding: Monitor Lab Values, Nursing to Teach Precautions for anti-coagulation therapy., Wound, if applicable, to be assessed every shift. and Stroke patients assessed for lethargy or change in status. Infection: Clinical Staff to Monitor for S/S of infection: and S/S of infection include fever, redness, warmth, etc. Urinary Tract Infection: Monitor for frequency, burning, discomfort, or incontinence. and Nursing will obtain urine sample for urinalysis and C&S when ordered. Aspiration: Clinical staff will monitor for coughing, drooling, congestion., Speech will evaluate swallowing and dsyphasia. and Nursing will monitor patient swallowing during meals. Falls: Patient will be evaluated for Fall Precautions and Patient will be placed on Fall Precautions as indicated per protocol. Skin Breakdown: Nursing will assess skin daily using assessment tool. and Nursing will place on Skin Breakdown Precautions as indicated. Pain: Clinical staff will assess patient's pain level per protocol., Medications will be given, if needed, and the pain level reassessed. and Other methods: Massage, distraction, decrease stimulus, etc. used PRN. Plan of Care Patient requires physician specializing in physical medicine and rehab oversight to provide close medical supervision of rehab issues including: Pain Management, Sleep Problems, Bowel and Bladder, Medical and co-morbidity Management, DVT prophylaxis, Rehabilitation Leadership and Coordination of treatment team Patient needs Physical Therapy: For a minimum of 1 hour and At least 5 out of 7 days Patient needs Physical Therapy to improve:: Mobility, Strengthening, Transfers, Stretching, ROM, Endurance, Stairs, Gait and Balance Patient needs Occupational Therapy: For a minimum of 1 hour and At least 5 out of 7 days Patient needs Occupational Therapy to improve ADL's incl.: Eating, Grooming, Bathing, Dressing, Toileting, Toilet transfers, Community Reintegration, Higher functioning activities, Household tasks, Adaptive Equipment, Splinting and Other activities as determined Patient requires 24/7 Rehabilitation Nursing for: Pain Issues, Identifying and preventing risk factors, Monitoring and reporting current medical conditions, Assisting with ambulation, transfer, and all ADL's, Teaching patients about disease process and medications, Family teaching, Providing safe environment, Bowel and Bladder Issues, Skin integrity and Medication Management Patient needs Curtains And Draperies Salesperson/ Case Management for: Discharge Planning, Arranging Home Equipment or Services and Family Interventions Patient needs Dietary and Nutrition Services for: Adequate Nutrition, Nutritional Supplements and Nutritional Education Goals Goals Patient will remain: free from falls Patient will perform eating at: MOD I level of assist. Patient will perform bed mobility at: MOD I level of assist. Patient will complete transfers from bed to chair at: MOD I level of assist. Patient will ambulate: - (350 feet with least restrictive device at mod I on various surfaces) Patient will complete upper body dressing at: MOD I level of assist. Patient will complete lower body dressing at: MOD I level of assist. (With adaptive equipment as needed for increased independence with self-care) Patient will complete toilet transfer at: MOD I level of assist. Patient will complete toileting at: MOD I level of assist. Patient will perform bathing at: MOD I level of assist. (Will complete upper body bathing independently and being mod I with adaptive equipment as needed for lower body bathing.) Patient will perform Tub/Shower transfer at: - (Supervision for the first 1 to 2 weeks postdischarge.) Patient will complete grooming at: MOD I level of assist. (While standing at the sink.) Patient will complete home management skills at: MOD I level of assist. Patient will achieve: - (Ascend/descend 2 steps with 1 handrail to allow access to her home entrance.) Patient will have pain level of: of 3 or less Patient's skin will: remain intact Patient will receive: adequate nutrition. Discharge Planning Pt Prognosis for Sig. Practical Improv. w/in Reasonable Time: Good Estimated Length of stay (days): 21 Anticipated D/C Destination: Home with Home Health Was Preadmission Assessment Accurate?: Yes
[2024-03-30 14:57] LABS: Mucous, Urine 0 SEEN /hpf (<or=2+)
[2024-03-30 14:59] LABS: Color, Urine Yellow (Yellow); Glucose, Dipstick Normal (Normal); Ketone-Dipstick Negative (Negative); Leukocyte Esterase-Dipstick 100 /ul (Negative); Nitrite-Dipstick Negative (Negative); Occult Blood-Urine 150 /ul (Negative); Protein-Dipstick 15 mg/dl (Negative); Urine Bilirubin Dipstick Negative (Negative); Urine Clarity Clear (Clear); Urine Urobilinogen Normal (Normal)
[2024-03-30 15:14] LABS: Bacteria 1+ /hpf (None Seen); Red Blood Cells-Urine 10-25 SEEN /hpf (0-5); White Blood Cells 0-5 SEEN /hpf (0-5)
[2024-03-30 15:15] LABS: Squamous Epithelial Cells - UA 0-5 SEEN /hpf (5-10)
[2024-03-30] MEDS: oxyCODONE 5 MG Tablet PO (15:27)
[2024-03-30] MEDS: Vitamin E 400 UNITS Capsule PO (16:46)
[2024-03-30] MEDS: Ascorbic Acid 500 MG Tablet PO (16:46)
[2024-03-30] MEDS: Aspirin E.C. 81 MG Tablet PO (16:46)
[2024-03-30 18:00] VITALS: BP 161/72; PULSE 99; RESP 17; TEMP 36.3; O2SAT 95
[2024-03-30] MEDS: Senna/Docusate Sodium 1 Tablet 2 TABLET PO (21:36)
[2024-03-30] MEDS: Arthritis Pain Compound 60 CLICK TUBE TOPICAL (21:37)
[2024-03-30 22:00] VITALS: PULSE 99; RESP 17; O2SAT 95
[2024-03-31] MEDS: oxyCODONE 5 MG Tablet PO ×2 (02:15→12:07)
[2024-03-31 06:00] VITALS: BP 134/94; PULSE 100; RESP 18; TEMP 36.4; O2SAT 97
[2024-03-31 06:00] LABS: Absolute Lymphocyte Count 2.28 X10^3/uL (0.83-4.51); Absolute Neutrophil Count 5.5 X10^3/uL (2.0-7.7); Basophil# 0.07 X10^3/uL; Basophil% 0.7 % (0-1); Eosinophils% 6.3 % (0-5); Hematocrit 31.8 % (37-47); Hemoglobin 9.9 g/dL (12.0-15.0); Lymphocyte # 2.28 X10^3/ul (0.83-4.51); Lymphocyte % 23.9 % (19-41); Mean Corp Hgb Conc 31.1 g/dL (32-36); Mean Corpuscular Hgb 28.8 pg (27.0-32.0); Mean Corpuscular Volume 92.4 fL (81-99); Mean Platelet Vol. 9.4 fl (6.2-12.0); Monocyte# 1.04 X10^3/uL; Monocyte% 10.9 % (0-10); NRBC Flagged by Analyzer 0 % (0-5); Neutrophil # 5.47 X10^3/uL (2.7-7.7); Neutrophil % 57.6 % (47-70); Platelet Count 523 K/mm3 (150-450); RBC Distribution Width CV 13.3 % (11.6-14.6); RBC Distribution Width SD 44.9 fl (35.1-43.9); Red Blood Count 3.44 M/mm3 (4.2-5.4); White Blood Count 9.5 K/mm3 (4.4-11.0)
[2024-03-31] MEDS: Arthritis Pain Compound 60 CLICK TUBE TOPICAL ×2 (06:12→21:26)
[2024-03-31 06:27] LABS: ALB/GLOB Ratio 0.7 RATIO (0.9-2.4); AST(SGOT) 26 U/L (15-37); Alanine Aminotransfer ALT/SGPT 9 U/L (13-56); Albumin, Serum 2.7 g/dL (3.2-5.0); Alkaline Phosphatase 79 U/L (45-117); Anion Gap 7 (5-15); BUN 11 mg/dL (7-18); BUN/Creat Ratio 16.6 RATIO (10-20); Calcium,Total 9.3 mg/dL (8.5-10.1); Chloride 102 mmol/L (98-107); Cholesterol 191 mg/dL (200); Creatinine, Serum 0.66 mg/dL (0.55-1.02); EST Glomerular Filtration Rate 92 mL/min (>60); Est Glom Filt Rate - Afr Amer 111 mL/min (>60); Estimated Creatinine Clearance 50.61 ml/min; Globulin 4.1 g/dL (2.2-4.2); Glucose 101 mg/dL (74-106); High Density Lipoprotein 73 mg/dL; Magnesium 1.9 mg/dL (1.6-2.6); Phosphorus 3.9 mg/dL (2.5-4.9); Potassium 3.9 mmol/L (3.5-5.1); Protein, Total 6.8 g/dL (6.4-8.2); Sodium Level 139 mmol/L (136-145); Triglycerides 109 mg/dL; Very Low Density Lipoprotein 22 mg/dL (5-40)
[2024-03-31] MEDS: Acetaminophen 500 MG Tablet 1000 MG PO ×2 (08:20→16:20)
[2024-03-31] MEDS: Ascorbic Acid 500 MG Tablet PO ×2 (08:20→16:22)
[2024-03-31] MEDS: Aspirin E.C. 81 MG Tablet PO ×2 (08:21→16:22)
[2024-03-31] MEDS: Senna/Docusate Sodium 1 Tablet 2 TABLET PO ×2 (08:21→21:25)
[2024-03-31] MEDS: Vitamin E 400 UNITS Capsule PO ×2 (08:21→16:22)
[2024-03-31] MEDS: Multivitamins,Therapeutic Tablet 1 TABLET PO (08:21)
[2024-03-31] MEDS: ALPRAZolam 0.25 MG Tablet 0.125 MG PO ×2 (08:56→21:26)
--- NOTE | 2024-03-31 11:51 | PN_ITS ---
Subjective Subjective Afebrile VSS -blood pressure has ranged from 134/94 to 161/72 since admission. Heart rate is ranged from 99-106. Maintaining appropriate oxygen saturation on RA Oral intake - FOOD good FLUIDS poor Discussed with nursing - no problems that need addressed Reviewed the THERAPY notes Medication list reviewed. Has had 2 oxycodone 10 mg tablets and 1 Xanax tablet since admission to rehab. All lab drawn this morning was personally reviewed. The white blood cell count is normal. Hemoglobin is 9.9 with normochromic normocytic indices. Platelets are mildly increased at 523,000. Sodium is 139 and the potassium is 3.9. The BUN is 11 with a creatinine of 0.66 and a BUN/creatinine ratio of 16.6. Calcium is within normal limits. Phosphorus is normal and the magnesium is normal at 1.9. LFTs are unremarkable. Triglycerides are 109 and the total cholesterol is 191. LDL is 96 and HDL is 73. UA taken from the Scott catheter showed 10-25 RBCs and 0-5 WBCs with 1+ bacteria. Urine culture is pending. C/O confusion and nausea when she takes Oxycodone and so she is not wanting to take it. Also having some issues with constipation. She is on stool softeners. Denies lightheadedness, chest pain, shortness of breath, cough, suprapubic pain and calf pain. Objective Data Objective Data Vital Signs: Vital Signs Temp Pulse Resp BP Pulse Ox O2 Del Method 97.5 F L 100 18 134/94 H 97 Room Air 03/31/24 06:00 03/31/24 06:00 03/31/24 06:00 03/31/24 06:00 03/31/24 06:00 03/31/24 10:00 Oxygen Delivery Method Room Air Weight: 139 lb 3.198 oz Body Mass Index (BMI) 25.4 Intake & Output: Intake and Output for Last 24 Hours 03/29/24 03/30/24 03/31/24 23:59 23:59 23:59 Intake Total 800 / 800 520 / 520 Output Total 1600 / 1600 1300 / 1300 Balance -800 / -800 -780 / -780 Lab / Micro Data 03/31/24 05:38 03/31/24 05:38 Labs: Laboratory Results - last 24 hr 03/30/24 14:50: Urine Color Yellow, Urine Clarity Clear, Urine pH 7.0, Ur Specific [place] 1.010, Urine Protein 15 H, Urine Glucose (UA) Normal, Urine Ketones Negative, Urine Occult Blood 150 H, Urine Nitrite Negative, Urine Bilirubin Negative, Urine Urobilinogen Normal, Ur Leukocyte Esterase 100 H, Urine RBC 10-25 SEEN, Urine WBC 0-5 SEEN, Ur Squamous Epith Cells 0-5 SEEN, Urine Bacteria 1+, Urine Mucus 0 SEEN 03/31/24 05:38: WBC 9.5, RBC 3.44 L, Hgb 9.9 L, Hct 31.8 L, MCV 92.4, MCH 28.8, MCHC 31.1 L, RDW Std Deviation 44.9 H, RDW Coeff of Anastacio 13.3, Plt Count 523 H, MPV 9.4, Immature Gran % (Auto) 0.600, Neut % (Auto) 57.6, Lymph % (Auto) 23.9, [place] % (Auto) 10.9 H, Eos % (Auto) 6.3 H, Baso % (Auto) 0.7, Absolute Neuts (auto) 5.5, Absolute Lymphs (auto) 2.28, Nucleated RBC % 0, Sodium 139, Potassium 3.9, Chloride 102, Carbon Dioxide 30.0, Anion Gap 7, BUN 11, Creatinine 0.66, Estim Creat Clear Calc 50.61, Est GFR (MDRD) Af Amer 111, Est GFR (MDRD) Non-Af 92, BUN/Creatinine Ratio 16.6, Glucose 101, Calcium 9.3, Phosphorus 3.9, Magnesium 1.9, Total Bilirubin 0.70, AST 26, ALT 9 L, Alkaline Phosphatase 79, Total Protein 6.8, Albumin 2.7 L, Globulin 4.1, Albumin/Globulin Ratio 0.7 L, Triglycerides 109, Cholesterol 191, LDL Cholesterol 96, VLDL Cholesterol 22, HDL Cholesterol 73 Physical Exam Const alert, oriented x3 and no apparent distress General Appearance: cooperative Resp normal respiratory effort and clear to auscultation bilaterally Effort and Inspection: able to speak in complete sentences Cardio regular rhythm, no murmurs, no rub and no gallops Cardio Narrative: Mildly tachycardic with heart rate ranging from 100-105. No ectopy. Denies chest pain and shortness of breath. no CVA tenderness Narrative: Denies suprapubic pain. Scott catheter is in place for urine retention. The urine in the Scott tubing is pale yellow and clear. Extremity no calf tenderness Skin General Skin Exam: no breakdown Rashes: no rashes Psych denies suicidal ideation Psych Narrative: Anxious with increased heart rate Assessment & Plan Assessment/Plan (1) Physical debility: (2) Osteoarthritis: QUALIFIERS: Osteoarthritis location: multiple joints O steoarthritis type: primary Qualified Code(s): M15.0 - Primary generalized (osteo)arthritis (3) History of knee replacement procedure of left knee: (4) Urine retention: (5) Anxiety: (6) Tachycardia: (7) Grade I diastolic dysfunction: (8) History of hypertension: (9) Bilateral carotid bruits: PLAN: Plan 1. Continue therapy 2. DC Oxycodone and start Tramadol for pain Q 6H PRN 3. Continue to monitor the BP closely - family tells me that she is usually not anxious. Pt admits to feeling somewhat anxious.....recent surgery, pain since August, now needing to be in rehab, presence of Scott catheter. She tells me that she has never been on a medication for BP. It was mentioned in the documentation sent to us that she had been on an antihypertensive in the past. She has been treated in the past for anxiety by Dr. Holt. Continue alprazolam as needed. Charges/Coding Visit Charges Inpatient E&M: 27727 Subs Hosp L1
[2024-03-31 18:00] VITALS: BP 160/59; PULSE 100; RESP 17; TEMP 36.9; O2SAT 96
[2024-03-31 21:00] VITALS: PULSE 101; RESP 17; O2SAT 96
[2024-03-31] MEDS: traMADol 50 MG Tablet PO (21:36)
--- NOTE | 2024-04-01 03:11 | NURSING ---
REVIEWED AND AGREE WITH Lisset HARRY, DOCUMENTATION AND ASSESSMENT CHARTING
[2024-04-01] MEDS: Arthritis Pain Compound 60 CLICK TUBE TOPICAL ×2 (05:40→21:05)
[2024-04-01] MEDS: Acetaminophen 500 MG Tablet 1000 MG PO ×2 (05:45→16:13)
[2024-04-01 06:00] VITALS: BP 143/55; PULSE 102; RESP 16; TEMP 36.9; O2SAT 95
[2024-04-01] MEDS: traMADol 50 MG Tablet PO ×3 (07:39→21:03)
[2024-04-01] MEDS: Senna/Docusate Sodium 1 Tablet 2 TABLET PO ×2 (07:40→21:05)
[2024-04-01] MEDS: Vitamin E 400 UNITS Capsule PO ×2 (07:40→16:14)
[2024-04-01] MEDS: Aspirin E.C. 81 MG Tablet PO ×2 (07:41→16:14)
[2024-04-01] MEDS: Multivitamins,Therapeutic Tablet 1 TABLET PO (07:41)
[2024-04-01] MEDS: Ascorbic Acid 500 MG Tablet PO ×2 (07:41→16:14)
--- NOTE | 2024-04-01 10:59 | PCM.PROGNOTE ---
Subjective Subjective Afebrile VSS -blood pressure over the past 24 hours has ranged from 143/55 (this AM) to 160/59 last night at 6 PM. resting HR is persistently elevated and has ranged form 99-106 since admission. She denies calf pain and also denies any hx of VTE. Maintaining appropriate oxygen saturation on RA Oral intake - FOOD good FLUIDS Pt tells me that she has been drinking a lot of fluids.....this is not reflected in the I&O's. Fluid balance has been negative since arrival on rehab. Weight did not change from 03/30 to 03/31. Denies lightheadedness. Not on a diuretic. BUN/CREAT ratio yesterday was < 20. Discussed with nursing - no problems that need addressed Reviewed the THERAPY notes Medication list reviewed. Taking ASA 81 mg BID for DVT prophylaxis per orthopedics. Fatoumata denies lightheadedness, shortness of breath, chest pain, nausea/vomiting/abdominal pain, palpitations. She denies left calf pain but today she is complaining of left thigh pain. On physical examination she does have some spasm in the quadriceps which is not unusual after a total knee replacement. Also having some discomfort in the L popliteal fossa. This is a new complaint today. She tells me that the tramadol is working well for her pain and she denies feeling confused or nauseated. She slept very well last night. I reviewed records today that we received on Giana from Dr. Holt. She has been on Sertraline in the past......was taking it last March on her 6 month check up. She stooped taking the Zoloft after that visit and was doing well at her next visit in Sep 2023. May be having recurrent anxiety due to events/pain over the past 8 months with her L knee. Objective Data Objective Data Vital Signs: Vital Signs Temp Pulse Resp BP Pulse Ox O2 Del Method 98.5 F 102 H 16 143/55 H 95 Room Air 04/01/24 06:00 04/01/24 06:00 04/01/24 06:00 04/01/24 06:00 04/01/24 06:00 04/01/24 06:00 Oxygen Delivery Method Room Air Weight: 139 lb 3.198 oz Body Mass Index (BMI) 25.4 Intake & Output: Intake and Output for Last 24 Hours 03/30/24 03/31/24 04/01/24 23:59 23:59 23:59 Intake Total 800 / 800 1320 / 1320 220 / 220 Output Total 1600 / 1600 3300 / 3300 800 / 800 Balance -800 / -800 -1979 / -1979 -580 / -580 Lab / Micro Data 03/31/24 05:38 03/31/24 05:38 Micro: Microbiology 03/30/24 14:50 Urine Catheter - Scott Urine Culture - Preliminary Culture exhibits no growth. Physical Exam Const alert, oriented x3 and no apparent distress Constitutional Narrative: Lying in bed icing her knee. Looks comfortable. HEENT Mouth: dry mucous membranes Resp clear to auscultation bilaterally Cardio regular rhythm, no murmurs, no rub and no gallops Rate: tachycardic GI normal to inspection, nondistended, normoactive bowel sounds, soft to palpation and non-tender GI Narrative: Tells me that she had a BM today. This is the first BM since arrival on rehab. Has been taking senna 2 tablets twice daily. Tells me that she feels like she has to have a BM but, when she sat on the toilet twice yesterday she was not able to go. Extremity Extremity Narrative: The left calf is swollen but, she denies any pain in either calf. Only a trace of Left ankle edema today. She has TEDS on today. She has some pain with compression of the left thigh. Some mild quadriceps spasm in the upper thigh. The thigh is not red or sandee warm to touch. The dressing of the L knee was removed today and the incision is intact with no dehiscence, no erythema, no DC. there is some resolving bruising and the knee is swollen. The left thigh is also swollen. Skin General Skin Exam: no breakdown Rashes: no rashes Assessment & Plan Assessment/Plan (1) Physical debility: (2) Osteoarthritis: QUALIFIERS: Osteoarthritis location: multiple joints Osteoarthritis type: primary Qualified Code(s): M15.0 - Primary generalized (osteo)arthritis (3) History of knee replacement procedure of left knee: (4) Urine retention: (5) Anxiety: (6) Tachycardia: PLAN: Etiology? May be due to stress/anxiety but, in light of the new complaint of Left thigh pain will need to R/O VTE. (7) Grade I diastolic dysfunction: (8) History of hypertension: PLAN: Pt denies this (9) Bilateral carotid bruits: PLAN: Plan 1. Continue therapy 2. Apply the arthritis compounded cream containing baclofen, lidocaine and Voltaren to the left anterior thigh as well as the right knee. 3. Check vital signs every 4 hours while awake for the next 72 hours 4. Venous ultrasound of the left lower extremity........ if this is negative will likely add medication to treat anxiety. Continue as needed Xanax for now. 5. Tramadol is working much better than the oxycodone without any significant adverse effects. Will continue tramadol every 6 hours as needed for pain control. 6. Check and H&H today to rule out worsening anemia as etiology of the tachycardia. She is not especially pale today.
--- NOTE | 2024-04-01 11:05 | VDLE_ITS ---
Reason For Study: Swelling LLE Procedure LEFT This is a venous duplex using B-mode, color GSV is normal. flow and spectral Doppler. CFV is compressible, spontaneous, phasic, Exam performed portable in patient room. competent, and demonstrates normal A preliminary report was called and/or faxed augmentation. to Dr. Grimm. FV is compressible, spontaneous, phasic, competent and demonstrates normal augmentation. POP V is compressible, spontaneous, phasic, competent and demonstrates normal augmentation. T/P Trunk is compressible. PTV is compressible. LT PerV is compressible. VL/Venous Duplex US, Unilateral Interpretation Summary Deep veins of the left lower extremity are patent and compressible segmentally. There is no evidence of left lower extremity deep vein thrombosis. The left great saphenous vein bc ears patent and compressible segmentally. Ordering Physician: Alejandra Grimm Referring Physician: Sanjay Holt Performed By: Lauren Segal, PEDRO, RVT
--- NOTE | 2024-04-01 11:32 | NURSING ---
Indwelling cath removed by this nurse per verbal instructions from DO Grimm. Pt tolerated procedure well. PVR to be checked for the next 3 voids.
[2024-04-01] MEDS: Magnesium Hydroxide 30 ML UDC PO (11:54)
[2024-04-01 12:45] LABS: Hematocrit 28.9 % (37-47); Hemoglobin 9.2 g/dL (12.0-15.0)
[2024-04-01 15:03] VITALS: BP 143/66; PULSE 94; RESP 16; TEMP 37.1; O2SAT 97
--- NOTE | 2024-04-01 15:47 | CHAPLAIN ---
Type of Pastoral Visit _x__ Initial Visit ___ Follow-up Visit ___ On-call Visit ___ General Patient Visit ___ Spiritual Assessment ___ Family Conference ___ Bereavement ___ Rapid Response ___ Code Blue ___ Other (describe below) Pastoral Care Referral From _x__ Patient ___ Family ___ Nurse ___ Physician ___ Sat Tutor ___ Laborer [employer] ___ Other (describe below) Sacrament/Intervention _x__ Active listening ___ Anointing ___ Jain ___ Bereavement ___ Communion ___ Estefany exploration ___ ___ Life review _x__ Prayer ___ Reconciliation ___ Sacrament of Sick ___ Supportive presence ___ Wedding ___ Other (describe below) Pastoral Comments this became a brief visit as therapy came to do a session with the patient; pt did have time to describe some disappointment that the simple knee surgery turned into much more; pt had many chambers and cards in the room and discussion on the support of family, friends, and her muslim; 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
[2024-04-01 18:00] VITALS: BP 157/62; PULSE 104; RESP 18; TEMP 37.1; O2SAT 95
[2024-04-01 20:20] VITALS: PULSE 104; RESP 18; O2SAT 95
[2024-04-01] MEDS: Ensure Plus High Protein 120 ML LIQUID PO (21:03)
[2024-04-01 22:00] VITALS: BP 159/65; PULSE 98; RESP 16
[2024-04-02] MEDS: Acetaminophen 500 MG Tablet 1000 MG PO ×2 (01:40→18:52)
--- NOTE | 2024-04-02 03:54 | NURSING ---
Reviewed and agree with Lisset HARRY, documentation and assessment charting.
[2024-04-02 05:28] VITALS: BP 155/70; PULSE 85; RESP 16; TEMP 36.4; O2SAT 96
[2024-04-02] MEDS: Arthritis Pain Compound 60 CLICK TUBE TOPICAL ×2 (05:33→21:05)
[2024-04-02 05:42] VITALS: BMI 25.2
[2024-04-02] MEDS: traMADol 50 MG Tablet PO ×2 (06:21→14:33)
--- NOTE | 2024-04-02 08:16 | RAD_ITS ---
STUDY: X-RAY - ABDOMEN/PELVIS REASON FOR EXAM: Female, 78 years old. Constipation TECHNIQUE: Two AP supine views of the abdomen and pelvis. COMPARISON: None. FINDINGS: There is no bowel obstruction. There is a moderate amount of stool in the colon, consistent with mild constipation. The visualized osseous structures are within normal limits. RAD/Abdomen Single View IMPRESSION: No bowel obstruction. Mild constipation. Electronically Signed: Tonio Soriano MD at 10:38 EDT ,
[2024-04-02] MEDS: Sertraline 50 MG Tablet 25 MG PO (08:51)
[2024-04-02] MEDS: Senna/Docusate Sodium 1 Tablet 2 TABLET PO (08:51)
[2024-04-02] MEDS: Aspirin E.C. 81 MG Tablet PO ×2 (08:51→16:32)
[2024-04-02] MEDS: Vitamin E 400 UNITS Capsule PO ×2 (08:52→16:32)
[2024-04-02] MEDS: Ascorbic Acid 500 MG Tablet PO ×2 (08:52→16:32)
[2024-04-02] MEDS: Multivitamins,Therapeutic Tablet 1 TABLET PO (08:52)
[2024-04-02] MEDS: Ensure Plus High Protein 120 ML LIQUID PO ×2 (08:59→21:05)
[2024-04-02 10:25] VITALS: BP 135/71; PULSE 107
[2024-04-02] MEDS: Magnesium Citrate 300 ML 150 ML PO (11:13)
[2024-04-02 14:00] VITALS: BP 127/56; PULSE 96
[2024-04-02] MEDS: Bisacodyl 10 MG Suppository RC (16:32)
[2024-04-02 18:00] VITALS: BP 139/58; PULSE 110; RESP 18; TEMP 37.2; O2SAT 95
[2024-04-02 21:05] VITALS: BP 133/57; PULSE 94
[2024-04-02] MEDS: Metoprolol Tartrate 25 MG Tablet 12.5 MG PO (21:05)
[2024-04-02 22:00] VITALS: BP 133/57; PULSE 94; RESP 18; TEMP 36.4; O2SAT 94
[2024-04-03] MEDS: traMADol 50 MG Tablet PO ×4 (02:03→20:55)
[2024-04-03 04:54] VITALS: BP 136/61; PULSE 91; RESP 18; TEMP 36.9; O2SAT 96
[2024-04-03] MEDS: Acetaminophen 500 MG Tablet 1000 MG PO ×2 (05:27→23:30)
[2024-04-03] MEDS: Arthritis Pain Compound 60 CLICK TUBE TOPICAL ×2 (05:28→20:44)
[2024-04-03] MEDS: Ensure Plus High Protein 120 ML LIQUID PO ×2 (08:11→20:49)
[2024-04-03] MEDS: Vitamin E 400 UNITS Capsule PO ×2 (08:11→16:52)
[2024-04-03] MEDS: Senna/Docusate Sodium 1 Tablet 2 TABLET PO ×2 (08:11→20:47)
[2024-04-03] MEDS: Sertraline 50 MG Tablet 25 MG PO (08:12)
[2024-04-03] MEDS: Multivitamins,Therapeutic Tablet 1 TABLET PO (08:12)
[2024-04-03] MEDS: Aspirin E.C. 81 MG Tablet PO ×2 (08:12→16:51)
[2024-04-03] MEDS: Ascorbic Acid 500 MG Tablet PO ×2 (08:12→16:51)
[2024-04-03 08:13] VITALS: PULSE 91
[2024-04-03] MEDS: Metoprolol Tartrate 25 MG Tablet 12.5 MG PO ×2 (08:13→20:47)
[2024-04-03 10:00] VITALS: BP 131/60; PULSE 94
[2024-04-03 17:44] VITALS: BP 137/67; PULSE 102; RESP 16; TEMP 37.1; O2SAT 97
[2024-04-03 20:47] VITALS: BP 123/54; PULSE 103
[2024-04-03] MEDS: Polyethylene Glycol 3350 17 GM PACKET PO (20:49)
[2024-04-04] MEDS: traMADol 50 MG Tablet PO ×3 (03:15→15:39)
[2024-04-04 03:45] LABS: Mucous, Urine 0 SEEN /hpf (<or=2+); Red Blood Cells-Urine 0 SEEN /hpf (0-5); Squamous Epithelial Cells - UA 0 SEEN /hpf (5-10)
[2024-04-04 05:17] VITALS: BP 129/51; PULSE 96; RESP 16; TEMP 36.9; O2SAT 95
[2024-04-04 05:55] LABS: Color, Urine Yellow (Yellow); Glucose, Dipstick Normal (Normal); Ketone-Dipstick Negative (Negative); Leukocyte Esterase-Dipstick 500 /ul (Negative); Nitrite-Dipstick Negative (Negative); Occult Blood-Urine 250 /ul (Negative); Protein-Dipstick 30 mg/dl (Negative); Urine Bilirubin Dipstick Negative (Negative); Urine Clarity Clear (Clear); Urine Urobilinogen Normal (Normal)
[2024-04-04 06:10] LABS: Bacteria 3+ /hpf (None Seen); Renal Epithelial Cells 0-5 SEEN /hpf (0-5); White Blood Cells 25-50 SEEN /hpf (0-5)
[2024-04-04 08:20] VITALS: BP 129/50; PULSE 103
[2024-04-04] MEDS: Metoprolol Tartrate 25 MG Tablet 12.5 MG PO ×2 (08:20→20:47)
[2024-04-04] MEDS: Aspirin E.C. 81 MG Tablet PO ×2 (08:20→16:56)
[2024-04-04] MEDS: Multivitamins,Therapeutic Tablet 1 TABLET PO (08:20)
[2024-04-04] MEDS: Senna/Docusate Sodium 1 Tablet 2 TABLET PO ×2 (08:23→20:47)
[2024-04-04] MEDS: Ascorbic Acid 500 MG Tablet PO ×2 (08:23→16:56)
[2024-04-04] MEDS: Vitamin E 400 UNITS Capsule PO ×2 (08:23→16:56)
[2024-04-04] MEDS: Arthritis Pain Compound 60 CLICK TUBE TOPICAL ×2 (08:23→20:37)
[2024-04-04] MEDS: Polyethylene Glycol 3350 17 GM PACKET PO ×2 (08:24→20:39)
[2024-04-04] MEDS: Sertraline 50 MG Tablet 25 MG PO (08:25)
[2024-04-04] MEDS: Ensure Plus High Protein 120 ML LIQUID PO ×2 (08:27→20:37)
[2024-04-04] MEDS: Acetaminophen 500 MG Tablet 1000 MG PO ×2 (08:30→20:40)
[2024-04-04 18:00] VITALS: BP 130/57; PULSE 90; RESP 16; TEMP 36.6; O2SAT 95
[2024-04-04 20:47] VITALS: BP 128/51; PULSE 91
[2024-04-04 20:48] VITALS: BP 128/58; PULSE 91
[2024-04-04 22:00] VITALS: RESP 16; O2SAT 96
[2024-04-05 06:00] VITALS: BP 154/61; PULSE 87; RESP 16; TEMP 36.5; O2SAT 98
[2024-04-05] MEDS: Arthritis Pain Compound 60 CLICK TUBE TOPICAL ×2 (06:12→22:19)
[2024-04-05 08:21] VITALS: PULSE 87
[2024-04-05] MEDS: Aspirin E.C. 81 MG Tablet PO ×2 (08:21→17:54)
[2024-04-05] MEDS: Metoprolol Tartrate 25 MG Tablet 12.5 MG PO ×2 (08:21→22:16)
[2024-04-05] MEDS: Ascorbic Acid 500 MG Tablet PO ×2 (08:22→17:54)
[2024-04-05] MEDS: Multivitamins,Therapeutic Tablet 1 TABLET PO (08:22)
[2024-04-05] MEDS: Sertraline 50 MG Tablet 25 MG PO (08:22)
[2024-04-05] MEDS: Vitamin E 400 UNITS Capsule PO ×2 (08:22→17:54)
[2024-04-05] MEDS: Senna/Docusate Sodium 1 Tablet 2 TABLET PO ×2 (08:22→22:19)
[2024-04-05] MEDS: Polyethylene Glycol 3350 17 GM PACKET PO (08:23)
[2024-04-05] MEDS: Ensure Plus High Protein 120 ML LIQUID PO ×2 (08:24→22:16)
--- NOTE | 2024-04-05 09:36 | PN_ITS ---
Subjective Subjective Giana was seen on team rounds today. Family was present in the room for rounds. Afebrile VSS -blood pressure over the past 24 hours has ranged from 128/58 to 154/61 this morning. 154/61 is an outlier, the remainder of the blood pressures have been much improved since the addition of low-dose metoprolol to her drug regimen. Maintaining appropriate oxygen saturation on RA Oral intake - FOOD good FLUIDS good Discussed with nursing -still needing straight cath. UA was sent yesterday and had 25-50 WBCs with no epithelial cells and 3+ bacteria. Urine culture is growing greater than 100,000 colonies of E. coli. Sensitivities are pending. Having regular bowel movements now. Reviewed the THERAPY notes Medication list reviewed. Tolerating sertraline with no adverse side effects. Had 3 doses of tramadol yesterday. The last dose of tramadol was yesterday afternoon at 3:40 PM. No alprazolam since 03/31/2024. Giana denies lightheadedness, vertigo, CP, SOB at rest, SOB with exertion, cough, nausea, vomiting, abd pain, diarrhea, constipation, suprapubic pain, flank pain, calf pain and ankle swelling. Objective Data Objective Data Vital Signs: Vital Signs Temp Pulse Resp BP Pulse Ox O2 Del Method 97.7 F L 87 16 154/61 H 98 Room Air 04/05/24 06:00 04/05/24 08:21 04/05/24 06:00 04/05/24 06:00 04/05/24 06:00 04/05/24 06:00 Oxygen Delivery Method Room Air Weight: 137 lb 2.04 oz Body Mass Index (BMI) 25.2 Intake & Output: Intake and Output for Last 24 Hours 04/03/24 04/04/24 04/05/24 23:59 23:59 23:59 Intake Total 1900 / 1900 2450 / 2450 1000 / 1000 Output Total 3075 / 3075 4780 / 4780 2225 / 2225 Balance -1175 / -1175 -2330 / -2330 -1225 / -1225 Lab / Micro Data 04/01/24 12:30 03/31/24 05:38 Micro: Microbiology 04/04/24 03:30 Urine Catheter - Catheter Urine Culture - Preliminary Presumptive E. coli 03/30/24 14:50 Urine Catheter - Scott Urine Culture - Final Corynebact. pseudodiphtheritic Physical Exam Const alert, oriented x3 and no apparent distress General Appearance: cooperative HEENT moist oral mucous membranes Resp normal respiratory effort and clear to auscultation bilaterally Resp Narrative: No conversational dyspnea, no cough. Cardio regular rate, regular rhythm and no gallops Cardio Narrative: No ectopy GI normal to inspection, nondistended, normoactive bowel sounds, soft to palpation and non-tender GI Narrative: No guarding with palpation Extremity no calf tenderness Extremity Narrative: Left knee swelling has improved since admission. she has a little erythema medial to the distal incision. It is mildly warm to touch. No DC from the incision and there is no significant mel-incisional erythema. The erythema seems to be where the knee high TEDS are rubbing.......will have nursing use thigh high TEDS on the Left leg. No ankle edema Psych affect normal Psych Narrative: Seems less anxious Assessment & Plan Assessment/Plan (1) Physical debility: (2) Osteoarthritis: QUALIFIERS: Osteoarthritis location: multiple joints O steoarthritis type: primary Qualified Code(s): M15.0 - Primary generalized (osteo)arthritis (3) History of knee replacement procedure of left knee: (4) Urine retention: (5) Anxiety: (6) Tachycardia: (7) Grade I diastolic dysfunction: (8) History of hypertension: (9) Bilateral carotid bruits: (10) Forgetfulness: (11) Cystitis: PLAN: Plan 1. Continue therapy 2. Start cefadroxil and await sensitivities on the E. coli. 3. start Flomax 0.4 mg daily 4[address] Dr. Guo if she fails Flomax. Otherwise she can follow up with Dr. Guo as an OP 5. repeat a voiding trial in the next few days. If she fails the next voiding trial will need a catheter at DC. she is agreeable to being taught how to straight cath. 6. Orthostatics in a few days after starting the Flomax 7. Recheck a CBC and BMP on 8. Speech therapy evaluation for cognition/forgetfulness. Charges/Coding Visit Charges Inpatient E&M: 83884 Subs Hosp L2
[2024-04-05] MEDS: Acetaminophen 500 MG Tablet 1000 MG PO ×2 (09:43→22:16)
--- NOTE | 2024-04-05 11:37 | CASEMGMT ---
Social Work IDT met with patient and multiple family members for Team meeting. Discussed patient's progress in PT/OT/SN. Educated to Medicare approval of 10 days with DC 04/12. Pt's goal is to return home alone. ST order entered to determine any cognitive deficits. Pt may DC home aguayo. SW to coordinate skilled HHC and any DME needs. SW will continue to follow to finalize plans. NIYAH ZavaletaW
[2024-04-05] MEDS: Cefadroxil 500 MG CAPSULE 1000 MG PO (12:34)
[2024-04-05 16:11] VITALS: BMI 25.1
[2024-04-05] MEDS: Ferrous Sulfate 325 MG Tablet PO (17:54)
[2024-04-05] MEDS: Tamsulosin HCl 0.4 MG Capsule PO (17:54)
[2024-04-05] MEDS: traMADol 50 MG Tablet PO (17:54)
[2024-04-05 18:00] VITALS: BP 155/56; PULSE 87; RESP 16; TEMP 36.9; O2SAT 95
[2024-04-05 22:16] VITALS: PULSE 77
[2024-04-05] MEDS: Cefadroxil 500 MG CAPSULE PO (22:18)
[2024-04-06 05:33] VITALS: BMI 24.6
[2024-04-06 05:35] VITALS: BP 155/69; PULSE 89; RESP 16; TEMP 36.4; O2SAT 95
[2024-04-06] MEDS: Arthritis Pain Compound 60 CLICK TUBE TOPICAL ×2 (05:45→21:48)
[2024-04-06] MEDS: Sertraline 50 MG Tablet 25 MG PO (07:52)
[2024-04-06 07:53] VITALS: PULSE 89
[2024-04-06] MEDS: Cefadroxil 500 MG CAPSULE PO ×2 (07:53→21:48)
[2024-04-06] MEDS: Aspirin E.C. 81 MG Tablet PO ×2 (07:53→17:18)
[2024-04-06] MEDS: Ascorbic Acid 500 MG Tablet PO ×2 (07:53→17:18)
[2024-04-06] MEDS: Vitamin E 400 UNITS Capsule PO ×2 (07:53→17:18)
[2024-04-06] MEDS: Multivitamins,Therapeutic Tablet 1 TABLET PO (07:53)
[2024-04-06] MEDS: traMADol 50 MG Tablet PO (07:53)
[2024-04-06] MEDS: Metoprolol Tartrate 25 MG Tablet 12.5 MG PO (07:53)
[2024-04-06] MEDS: Senna/Docusate Sodium 1 Tablet 2 TABLET PO (07:54)
[2024-04-06] MEDS: Ensure Plus High Protein 120 ML LIQUID PO ×2 (07:56→21:47)
--- NOTE | 2024-04-06 14:49 | PN_ITS ---
Subjective Subjective Day #2 cefadroxil for E. coli cystitis. Afebrile Blood pressures over the past 24 hours have ranged from 154/61 to 155/69. Heart rate is ranged from 77-89. Sleeping well at night Good appetite and oral intake. Pain is adequately controlled. Took only 1 tramadol yesterday and she has taken 1 so far today with breakfast. Culture sensitivities to the E. coli to be resistant to ampicillin and intermediately sensitive to Augmentin but sensitive to cephalosporins. Will continue cefadroxil. Urine in the Scott bag is pale yellow and clear. She denies suprapubic pain. She also denies flank pain, nausea/vomiting, chest pain, shortness of breath, calf tenderness. Objective Data Objective Data Vital Signs: Vital Signs Temp Pulse Resp BP Pulse Ox O2 Del Method 97.5 F L 89 16 155/69 H 95 Room Air 04/06/24 05:35 04/06/24 07:53 04/06/24 05:35 04/06/24 05:35 04/06/24 05:35 04/06/24 05:35 Oxygen Delivery Method Room Air Weight: 134 lb 0.657 oz Body Mass Index (BMI) 24.6 Intake & Output: Intake and Output for Last 24 Hours 04/04/24 04/05/24 04/06/24 23:59 23:59 23:59 Intake Total 2450 / 2450 2600 / 2800 1160 / 1160 Output Total 4780 / 4780 4150 / 4600 1400 / 1400 Balance -2330 / -2330 -1550 / -1800 -240 / -240 Lab / Micro Data 04/07/24 05:45 04/07/24 05:45 Micro: Microbiology 04/04/24 03:30 Urine Catheter - Catheter Urine Culture - Final Presumptive E. coli 03/30/24 14:50 Urine Catheter - Scott Urine Culture - Final Corynebact. pseudodiphtheritic Physical Exam Const alert, oriented x3 and no apparent distress Constitutional Narrative: Sleeping much better at night. General Appearance: cooperative Resp normal respiratory effort and clear to auscultation bilaterally Resp Narrative: No conversational dyspnea, no cough. Cardio regular rate, regular rhythm and no gallops Cardio Narrative: No ectopy GI normal to inspection, nondistended, normoactive bowel sounds, soft to palpation and non-tender GI Narrative: No guarding with palpation Extremity no calf tenderness Extremity Narrative: Swelling in the left knee continues to improve. Less pain in the left anterior thigh today and less spasm when I examine the muscle. No edema in the left ankle. Skin General Skin Exam: no breakdown Rashes: no rashes Wound Narrative: Incision is intact with no dehiscence, no mel-incisional erythema, no discharge. The mild redness on the medial side of the distal knee has resolved with changing to thigh-high YASMINE hose on the left. She is complaining that they are hard to keep up but I reinforced with her that it was causing too much constriction just below the knee and contributing to skin irritation. Assessment & Plan Assessment/Plan (1) Physical debility: (2) Osteoarthritis: QUALIFIERS: Osteoarthritis location: multiple joints O steoarthritis type: primary Qualified Code(s): M15.0 - Primary generalized (osteo)arthritis (3) History of knee replacement procedure of left knee: (4) Urine retention: (5) Anxiety: (6) Tachycardia: (7) Cystitis: PLAN: Plan 1. Continue therapy 2. Finish a 7 day course of antibiotics for E. coli cystitis because it was catheter induced. 3. Voiding trial on Thursday. Continue Flomax. She denies lightheadedness. Charges/Coding Visit Charges Inpatient E&M: 03327 [facility] Hosp L1
[2024-04-06] MEDS: Acetaminophen 500 MG Tablet 1000 MG PO ×2 (15:30→23:29)
[2024-04-06 15:31] VITALS: BP 140/51; PULSE 85
[2024-04-06] MEDS: Tamsulosin HCl 0.4 MG Capsule PO (17:18)
[2024-04-06 17:57] VITALS: BP 127/47; PULSE 91; RESP 17; TEMP 36.6; O2SAT 96
[2024-04-06 21:52] VITALS: BP 155/59; PULSE 89
[2024-04-06] MEDS: Metoprolol Tartrate 25 MG Tablet PO (21:52)
[2024-04-06 22:00] VITALS: BP 155/59; PULSE 89; RESP 17; O2SAT 95
[2024-04-07] VITALS (7 sets, daily range): BP systolic 113–156; BP diastolic 50–65; PULSE 84–96; RESP 15–18; TEMP 36.7–37.1; O2SAT 95–951; BMI 24.8
[2024-04-07] MEDS: Arthritis Pain Compound 60 CLICK TUBE TOPICAL ×2 (05:22→21:35)
[2024-04-07 05:55] LABS: Hematocrit 31.5 % (37-47); Mean Corp Hgb Conc 31.7 g/dL (32-36); Mean Corpuscular Hgb 29.2 pg (27.0-32.0); Mean Corpuscular Volume 92.1 fL (81-99); Mean Platelet Vol. 8.8 fl (6.2-12.0); Platelet Count 680 K/mm3 (150-450); RBC Distribution Width CV 13.4 % (11.6-14.6); RBC Distribution Width SD 45.2 fl (35.1-43.9); Red Blood Count 3.42 M/mm3 (4.2-5.4); White Blood Count 10.3 K/mm3 (4.4-11.0)
[2024-04-07 06:25] LABS: Anion Gap 5 (5-15); BUN 14 mg/dL (7-18); Calcium,Total 9.5 mg/dL (8.5-10.1); Chloride 103 mmol/L (98-107); Creatinine, Serum 0.61 mg/dL (0.55-1.02); EST Glomerular Filtration Rate 101 mL/min (>60); Est Glom Filt Rate - Afr Amer 122 mL/min (>60); Glucose 103 mg/dL (74-106); Potassium 4.4 mmol/L (3.5-5.1); Sodium Level 136 mmol/L (136-145)
[2024-04-07] MEDS: Aspirin E.C. 81 MG Tablet PO ×2 (08:04→17:15)
[2024-04-07] MEDS: Senna/Docusate Sodium 1 Tablet 2 TABLET PO ×2 (08:04→21:35)
[2024-04-07] MEDS: Multivitamins,Therapeutic Tablet 1 TABLET PO (08:04)
[2024-04-07] MEDS: Vitamin E 400 UNITS Capsule PO ×2 (08:04→17:15)
[2024-04-07] MEDS: Ascorbic Acid 500 MG Tablet PO ×2 (08:04→17:15)
[2024-04-07] MEDS: Metoprolol Tartrate 25 MG Tablet PO ×2 (08:05→21:34)
[2024-04-07] MEDS: Polyethylene Glycol 3350 17 GM PACKET PO (08:05)
[2024-04-07] MEDS: Sertraline 50 MG Tablet 25 MG PO (08:05)
[2024-04-07] MEDS: Ensure Plus High Protein 120 ML LIQUID PO (08:05)
[2024-04-07] MEDS: Cefadroxil 500 MG CAPSULE PO ×2 (08:05→21:35)
--- NOTE | 2024-04-07 16:22 | CASEMGMT ---
Social Work SW spoke with pt to follow up on DC planning and answered pt's questions. Pt expressed concerns with returning home. Dtr is the person who can assist and she will [place] participating heavily in the [place] the week pt DCs home. Pt very anxious about discharging home with aguayo. Voiding trials will start this date. Pt inquired about hiring assistance. SW educated to nonskilled HHC. Also educated to short term SNF stay until aguayo can be removed, potentially, and when dtr can assist pt. Medicare will cover that short term stay at a SNF. Pt interested in that option, but would like to discuss it with family. SW agreed and provided resources for nonskilled HHC and SNF list with quality and resource data via [employer] Guide. Pt appreciative. SW will continue to follow. NIYAH Zavaleta
[2024-04-07] MEDS: Ferrous Sulfate 325 MG Tablet PO (17:15)
[2024-04-07] MEDS: Tamsulosin HCl 0.4 MG Capsule PO (17:15)
[2024-04-07] MEDS: Acetaminophen 500 MG Tablet 1000 MG PO (17:19)
[2024-04-07] MEDS: traMADol 50 MG Tablet PO (21:35)
[2024-04-08] VITALS (7 sets, daily range): BP systolic 129–152; BP diastolic 50–67; PULSE 60–90; RESP 15–18; TEMP 36.5–37.1; O2SAT 94–98
--- NOTE | 2024-04-08 05:36 | NURSING ---
aguayo catheter removed at this time, pt tolerated procedure well. 1300cc of clear yellow urine was noted in aguayo bag when removed
[2024-04-08] MEDS: Arthritis Pain Compound 60 CLICK TUBE TOPICAL ×2 (05:51→22:27)
[2024-04-08] MEDS: Aspirin E.C. 81 MG Tablet PO ×2 (08:00→17:19)
[2024-04-08] MEDS: Ascorbic Acid 500 MG Tablet PO ×2 (08:00→17:19)
[2024-04-08] MEDS: Multivitamins,Therapeutic Tablet 1 TABLET PO (08:00)
[2024-04-08] MEDS: Vitamin E 400 UNITS Capsule PO ×2 (08:00→17:19)
[2024-04-08] MEDS: Cefadroxil 500 MG CAPSULE PO ×2 (08:00→22:28)
[2024-04-08] MEDS: Metoprolol Tartrate 25 MG Tablet PO ×2 (08:01→22:27)
[2024-04-08] MEDS: Sertraline 50 MG Tablet 25 MG PO (08:02)
[2024-04-08] MEDS: Ensure Plus High Protein 120 ML LIQUID PO ×2 (08:03→22:27)
[2024-04-08] MEDS: Acetaminophen 500 MG Tablet 1000 MG PO ×2 (08:18→17:23)
[2024-04-08] MEDS: traMADol 50 MG Tablet PO ×2 (10:39→22:36)
--- NOTE | 2024-04-08 12:21 | PN_ITS ---
Subjective Subjective Afebrile VSS -blood pressure over the past 24 hours has ranged from 113/58 (X1) to 156/65.Systolics are pretty consistently > 140. Heart rate is generally in the 80s to 90s. Metoprolol was just increased to 25 mg twice daily yesterday. Maintaining appropriate oxygen saturation on RA Oral intake - FOOD good FLUIDS good oral fluid intake however the fluid balance is consistently negative......not sure we are capturing everything she is drinking during the day. Weight has decreased approximately 5 pounds since admission. She is not on a diuretic. Cefadroxil 01/14 doses given....... plan on treating for 7 days for catheter associated urinary tract infection. Discussed with nursing - no problems that need addressed Reviewed the THERAPY notes Having regular bowel movements and sometimes refusing the senna. Denies lightheadedness, chest pain, shortness of breath, cough, sore throat, nausea/vomiting/diarrhea/constipation, suprapubic pain, calf pain. The pain in the left thigh has improved with application of the compounded arthritis cream. Denies felling anxious as much as she was but, still getting anxious at times. Tolerating the Sertraline with no adverse side effects. Nervous today about possibly having to straight at home. Scott was DC'd earlier today and she has not had to urinate. Bladder scans are being done. All recent lab was personally reviewed. Hemoglobin is 10. She is on an iron supplement every 48 hours. No constipation and no abdominal pain. White blood cell count is 10.3 but she has no fever and the urine is clear. Platelets are increased at 680,000. Sodium is 136 and the potassium is 4.4. Serum bicarb is 28 and the BUN is 14 with a stable creatinine at 0.61. Objective Data Objective Data Vital Signs: Vital Signs Temp Pulse Resp BP Pulse Ox O2 Del Method 98.7 F 60 16 142/67 H 98 Room Air 04/08/24 09:56 04/08/24 09:56 04/08/24 09:56 04/08/24 09:56 04/08/24 09:56 04/08/24 09:56 Oxygen Delivery Method Room Air Weight: 134 lb 14.766 oz Body Mass Index (BMI) 24.8 Intake & Output: Intake and Output for Last 24 Hours 09/11/2404/07/24 04/08/24 23:59 23:59 23:59 Intake Total 2380 / 2380 1390 / 1390 1240 / 1240 Output Total 3175 / 3175 2700 / 2700 1300 / 1300 Balance -795 / -795 -1310 / -1310 -60 / -60 Lab / Micro Data 04/07/24 05:45 04/07/24 05:45 Micro: Microbiology 04/04/24 03:30 Urine Catheter - Catheter Urine Culture - Final Presumptive E. coli 03/30/24 14:50 Urine Catheter - Scott Urine Culture - Final Corynebact. pseudodiphtheritic Physical Exam Const alert, oriented x3 and no apparent distress Constitutional Narrative: Sleeping much better at night. General Appearance: cooperative HEENT HEENT Narrative: MIGUEL....has hearing aids but, she is not hearing well even with them in. When I ask her a question she frequently does not answer the questions I asked but, tells me about something else because she is not hearing me. ST is working with her for some memory strategies. I think her primary problem is she can not hear what is being said to her and therefore is unable to repeat back what she has been told. This gets interpreted as forgetfulness. She is somewhat anxious about going home. Her dtr will not be able to be with her next week because she will be at the [facility] all week. She had thought about going to SNF but, her sones want her to go home and are working with the SW/friends/family to make arrangements for someone to be with her day and night. She is very anxious about the possibility of having to straight cath. Resp normal respiratory effort and clear to auscultation bilaterally Resp Narrative: No conversational dyspnea, no cough. Cardio regular rate, regular rhythm and no gallops Cardio Narrative: No ectopy GI normal to inspection, nondistended, normoactive bowel sounds, soft to palpation and non-tender GI Narrative: No guarding with palpation Extremity no calf tenderness Extremity Narrative: Swelling in the left knee continues to improve. Less pain in the left anterior thigh today and less spasm when I examine the muscle. No edema in the left ankle. Skin General Skin Exam: no breakdown Rashes: no rashes Wound Narrative: Incision is intact with no dehiscence, no mel-incisional erythema, no discharge. The mild redness on the medial side of the distal knee has resolved with changing to thigh-high YASMINE hose on the left. She is complaining that they are hard to keep up but I reinforced with her that it was causing too much constriction just below the knee and contributing to skin irritation. Assessment & Plan Assessment/Plan (1) Physical debility: (2) Osteoarthritis: (3) History of knee replacement procedure of left knee: (4) Urine retention: (5) Anxiety: (6) Tachycardia: (7) Cystitis: PLAN: Plan 1. continue therapy 2. Increase Sertraline to 50 mg daily 3. continue to monitor frequent BP's - goal is less than 140/80. Diastolics are good. systolic is uncontrolled. Metoprolol was just increased yesterday.....no adverse reaction 4. Continue flomax 5. finish 7 days of antibiotics for catheter induced cystitis due to E. Coli Charges/Coding Visit Charges Inpatient E&M: 27143 [facility] L1
[2024-04-08] MEDS: Tamsulosin HCl 0.4 MG Capsule PO (17:19)
[2024-04-09 06:00] VITALS: BP 132/87; PULSE 97; RESP 18; TEMP 36.6; O2SAT 99
[2024-04-09] MEDS: Arthritis Pain Compound 60 CLICK TUBE TOPICAL ×2 (06:41→21:28)
[2024-04-09 08:47] VITALS: BP 156/64; PULSE 95
[2024-04-09] MEDS: Sertraline 50 MG Tablet PO (08:51)
[2024-04-09 08:52] VITALS: PULSE 95
[2024-04-09] MEDS: Vitamin E 400 UNITS Capsule PO ×2 (08:52→17:09)
[2024-04-09] MEDS: Ascorbic Acid 500 MG Tablet PO ×2 (08:52→17:09)
[2024-04-09] MEDS: Ensure Plus High Protein 120 ML LIQUID PO ×2 (08:52→21:21)
[2024-04-09] MEDS: Multivitamins,Therapeutic Tablet 1 TABLET PO (08:52)
[2024-04-09] MEDS: Cefadroxil 500 MG CAPSULE PO ×2 (08:52→21:28)
[2024-04-09] MEDS: Metoprolol Tartrate 25 MG Tablet PO ×2 (08:52→21:27)
[2024-04-09] MEDS: Aspirin E.C. 81 MG Tablet PO ×2 (08:52→17:09)
[2024-04-09] MEDS: Acetaminophen 500 MG Tablet 1000 MG PO ×2 (10:50→21:26)
[2024-04-09] MEDS: Tamsulosin HCl 0.4 MG Capsule PO (17:09)
[2024-04-09] MEDS: Ferrous Sulfate 325 MG Tablet PO (17:10)
[2024-04-09 18:00] VITALS: BP 137/60; PULSE 90; RESP 18; TEMP 36.5; O2SAT 97
[2024-04-09 21:27] VITALS: BP 132/57; PULSE 86
[2024-04-09] MEDS: Senna/Docusate Sodium 1 Tablet 2 TABLET PO (21:28)
[2024-04-10 06:00] VITALS: BP 141/55; PULSE 82; RESP 17; TEMP 37.2; O2SAT 95
[2024-04-10] MEDS: Acetaminophen 500 MG Tablet 1000 MG PO ×2 (06:18→21:28)
[2024-04-10] MEDS: Arthritis Pain Compound 60 CLICK TUBE TOPICAL ×2 (06:18→21:29)
[2024-04-10 08:41] VITALS: PULSE 96
[2024-04-10] MEDS: Metoprolol Tartrate 25 MG Tablet PO ×2 (08:41→21:29)
[2024-04-10] MEDS: Vitamin E 400 UNITS Capsule PO ×2 (08:41→17:47)
[2024-04-10] MEDS: Sertraline 50 MG Tablet PO (08:41)
[2024-04-10] MEDS: Polyethylene Glycol 3350 17 GM PACKET PO (08:42)
[2024-04-10] MEDS: Cefadroxil 500 MG CAPSULE PO ×2 (08:42→21:29)
[2024-04-10] MEDS: Aspirin E.C. 81 MG Tablet PO ×2 (08:42→17:47)
[2024-04-10] MEDS: Multivitamins,Therapeutic Tablet 1 TABLET PO (08:43)
[2024-04-10] MEDS: Ascorbic Acid 500 MG Tablet PO ×2 (08:43→17:47)
[2024-04-10 08:50] VITALS: BP 135/86; PULSE 92
[2024-04-10 17:45] VITALS: BMI 24.6
[2024-04-10] MEDS: Tamsulosin HCl 0.4 MG Capsule PO (17:47)
[2024-04-10 18:00] VITALS: BP 134/66; PULSE 78; RESP 15; TEMP 36.7; O2SAT 98
[2024-04-10 21:29] VITALS: BP 135/55; PULSE 91
[2024-04-10] MEDS: Senna/Docusate Sodium 1 Tablet 2 TABLET PO (21:30)
[2024-04-11 06:00] VITALS: BP 130/53; PULSE 82; RESP 18; TEMP 36.9; O2SAT 97
[2024-04-11] MEDS: Acetaminophen 500 MG Tablet 1000 MG PO ×2 (06:21→17:29)
[2024-04-11] MEDS: Arthritis Pain Compound 60 CLICK TUBE TOPICAL ×2 (09:08→22:47)
[2024-04-11 09:10] VITALS: BP 130/53; PULSE 82
[2024-04-11] MEDS: Sertraline 50 MG Tablet PO (09:10)
[2024-04-11] MEDS: Multivitamins,Therapeutic Tablet 1 TABLET PO (09:10)
[2024-04-11] MEDS: Metoprolol Tartrate 25 MG Tablet PO ×2 (09:10→22:47)
[2024-04-11] MEDS: Aspirin E.C. 81 MG Tablet PO ×2 (09:10→17:25)
[2024-04-11] MEDS: Cefadroxil 500 MG CAPSULE PO ×2 (09:10→22:47)
[2024-04-11] MEDS: Vitamin E 400 UNITS Capsule PO ×2 (09:10→17:25)
--- NOTE | 2024-04-11 10:55 | PN_ITS ---
Subjective Subjective #12/ cefadroxil for treatment of catheter related UTI Needs he was seen on team rounds today. Her daughter was present in the room. Afebrile VSS -blood pressure is now much better controlled. Heart rate is within normal limits. Maintaining appropriate oxygen saturation on RA Oral intake - FOOD good FLUIDS good Discussed with nursing - no problems that need addressed Reviewed the THERAPY notes Medication list reviewed. Very hard of hearing even with speaking louder she is missing things. Reinforced need for follow up with audiology for the hearing aids. Can't remember things I tell her because she is not hearing what is being said to her, sandee if there are other people in the room and if she is not able to read peoples lips due to distance from her. Denies lightheadedness, chest pain, shortness of breath, palpitations, nausea/vomiting/abdominal pain/diarrhea/constipation, suprapubic pain and calf tenderness. Many questions that I have answered already but, she has not heard me and asks again. Objective Data Objective Data Vital Signs: Vital Signs Temp Pulse Resp BP Pulse Ox O2 Del Method 98.5 F 82 18 130/53 H 97 Room Air 04/11/24 06:00 04/11/24 09:10 04/11/24 06:00 04/11/24 09:10 04/11/24 06:00 04/11/24 06:00 Oxygen Delivery Method Room Air Weight: 134 lb Body Mass Index (BMI) 24.6 Intake & Output: Intake and Output for Last 24 Hours 04/09/24 04/10/24 04/11/24 23:59 23:59 23:59 Intake Total 3260 / 3500 2540 / 2540 890 / 890 Output Total 2075 / 2675 3201 / 3201 500 / 500 Balance 1185 / 825 -661 / -661 390 / 390 Lab / Micro Data 04/07/24 05:45 04/07/24 05:45 Micro: Microbiology 04/04/24 03:30 Urine Catheter - Catheter Urine Culture - Final Presumptive E. coli 03/30/24 14:50 Urine Catheter - Scott Urine Culture - Final Corynebact. pseudodiphtheritic Physical Exam Const alert Constitutional Narrative: very pleasant. Makes good eye contact when you knows that you are speaking with her. Does better when you are 1 on 1 with her in her room when speaking. Interacting well with staff. Fixated on having to go home with a Scott. Wanting to see Dr. Guo [place] to get the catheter out. she has failed 2 voiding trials......the second one on Flomax. An appt has been made for to follow up with Sari Grubbs in the office in 2 weeks......as soon as we could get her in. I told her Dr. Guo will likely due to a voiding trial in the officve at that visit but, it she fails that voiding trial she may not get the Scott out even then. General Appearance: cooperative HEENT moist oral mucous membranes Resp normal respiratory effort and clear to auscultation bilaterally Resp Narrative: No conversational dyspnea, no cough. Cardio regular rate, regular rhythm and no gallops Cardio Narrative: No ectopy GI normal to inspection, nondistended, normoactive bowel sounds, soft to palpation and non-tender GI Narrative: No guarding with palpation Extremity no calf tenderness Extremity Narrative: some edema in the L knee but no ankle edema today. Overall the edema is much improved since admission to rehab. There is no mel-incisional erythema and no discharge from the left knee incision. Stitches are intact. She wondered when they would be removed because she was supposed to have the mild today but we told her that that appointment has been rescheduled and there is no harm in leaving the stitches in for another week. Her orthopedic surgeon prefers to remove the sutures himself. Skin General Skin Exam: no breakdown Rashes: no rashes Psych Psych Narrative: Still somewhat anxious about many things. The Scott catheter at discharge, when the Scott catheter will be discontinued, when she can follow-up with Dr. Guo, when the sutures will be removed, will she be OK at home etc. BP is better with the addition f Beta marleen to the drug regimen. the anxiety even though still present is better since she is now back on Sertraline. May be less anxious when she is able to hear what is being told to her. Assessment & Plan Assessment/Plan (1) Physical debility: (2) Osteoarthritis: QUALIFIERS: Osteoarthritis location: multiple joints O steoarthritis type: primary Qualified Code(s): M15.0 - Primary generalized (osteo)arthritis (3) History of knee replacement procedure of left knee: (4) Urine retention: (5) Anxiety: (6) Tachycardia: (7) Cystitis: PLAN: Plan 1. Plan discharge home tomorrow 2. Will DC with a Scott. Will need SN at DC with [facility]. 3. Will have home health care at discharge with PT/OT/SN. 4. No DME needed 5. Appointment has been scheduled with Dr. Guo to follow-up for urine retention. All Giana's questions and her daughter's questions were answered to their satisfaction. Charges/Coding Visit Charges Inpatient E&M: 66157 [facility] H[facility] L2
[2024-04-11 12:19] LABS: Bacteria 0 SEEN /hpf (None Seen); Mucous, Urine 0 SEEN /hpf (<or=2+)
[2024-04-11 12:29] LABS: Color, Urine Yellow (Yellow); Glucose, Dipstick Normal (Normal); Ketone-Dipstick Negative (Negative); Leukocyte Esterase-Dipstick 100 /ul (Negative); Nitrite-Dipstick Negative (Negative); Occult Blood-Urine 10 /ul (Negative); Protein-Dipstick Negative (Negative); Urine Bilirubin Dipstick Negative (Negative); Urine Clarity Sl. Cloudy (Clear); Urine Urobilinogen Normal (Normal); Urine pH 6.5 (5.0 - 8.0)
[2024-04-11 12:39] LABS: Squamous Epithelial Cells - UA 0-5 SEEN /hpf (5-10)
[2024-04-11 12:40] LABS: Red Blood Cells-Urine 0-5 SEEN /hpf (0-5); White Blood Cells 0-5 SEEN /hpf (0-5)
--- NOTE | 2024-04-11 12:45 | CASEMGMT ---
Social Work IDT met with patient and DIL for Team meeting. Discussed patient's progress in PT/OT/ST/SN. Confirmed DC 04/12. Pt and family is electing to DC home, despite returning home with new aguayo. DIL stated they have hired some help to stay with pt overnight and family to check in with pt consistently. SW discussed recommendation starting with HHC then transition to OP therapy for nursing assistance with HHC. Pt agreeable. SW to coordinate skilled HHC PT/OT/SN. Offered skilled HHC list of providers with quality and resource data via [employer]Port Guide. Pt/DIL requesting to use [facility]. No DME needs. DIL to transport. SW phoned referral to [facility] PT/OT/SN Plan: DC home alone 04/12, [facility] PT/OT/SN NIYAH Zavaleta
--- NOTE | 2024-04-11 16:51 | DCINST_ITS ---
Discharge Instructions Diet Discharge Diet: No restrictions Activity Discharge Activity: May Not Drive, May Shower (She feels uncomfortable using a shower chair and prefers to do sponge baths initially.) and Use Walker Weight Bearing Status: Full weight bearing Keep extremity elevated above heart level: Left Leg Dressing / Incision Call your doctor if your incision/area has: Continuous Slow Oozing, Sudden Increased Bleeding, Increased Pain/ Swelling, Increased Redness, Foul Smelling Discharge and Swelling at the incision site Call your doctor if you observe: Fever of 101 or Higher, Shortness of breath, Dizziness, Fainting spells, Swelling in the ankles, Chest pain, Increased palpitations (irregular heartbeat), Calf discomfort and Uncontrolled pain Suture Line Care: Avoid Pulling/Pushing and Avoid Pinching/Bending Cleanse incision/area with: Soap & Water and - (No dressing is necessary unless you are close or irritating the incision and then you may put a dry dressing over the incision) Follow Up Care When: You have several doctors appointment scheduled for you....... they are listed at the end of this document. Test Results: Test results from this visit will be discussed in further detail at your follow- up appointment, if applicable. Pending Tests Upon Discharge: None Discharge Plan Admission Admit Date/Time: 03/30/24 12:13 Primary Reason for Your Visit: Debility post left total knee replacement Attending Provider: Alejandra Grimm Primary Care Provider: Sanjay Holt Instructions Patient Instructions: Your Body's Response to Anxiety, Pelvic Organ Prolapse, Understanding Anxiety Disorders, Caring for Your Incision, ED Urinary Retention, Female Additional Instructions / Restrictions: 1. You have done very well in therapy. I think you will do very well at home. Unfortunately you will have to be discharged with a Scott catheter. We have done a few voiding trials and you have failed all of them. The last voiding trial was done on Flomax which is a medication that can help the flow of urine. After a little longer on this medication it may work. An appt has been made for you to follow up with Dr. Jenifer Guo from urology after discharge. She will likely remove the Scott catheter at your next office visit and do a voiding trial. If you are still unable to urinate she will discuss options with you. In the meantime the Scott catheter will need to stay in. Anytime you have a foreign body present in your body you are at risk for infection but with urine retention if left untreated you will be at risk for urinary tract infection as well and also kidney failure. We are going to have a nurse check on you periodically at home to make sure you are not getting an infection. If you develop a fever, shaking chills, night sweats or pain in the pelvic area you will need to call your primary care doctor or call home health. You will also need to call if you have blood in the urine, the urine is foul-smelling, there is a change in the color of the urine or the urine is cloudy. We checked your urine prior to discharge from rehab and you have no sign of urinary tract infection at this time. You finished a course of an antibiotic called cefadroxil to treat the urinary tract infection you had while on rehab. 2. Your kidney function has been good on rehab. You have not had fevers. 3. You are a little anemic due to blood loss from the surgery. We have you on an iron supplement to help build the blood count back up. Iron can cause constipation so if you are having problems with constipation you may need to start a stool softener.....I recommend Metamucil or Citrucel or MiraLAX. 4. You are missing a lot of information because you are not hearing well. It makes you seem very forgetful when in fact your can not remember things because you never heard what was being said to you. Your hearing is going to be worse when you are in a room full of people, when there is music playing, when there is outside noise, when more than one person is talking. Make sure that when someone is talking with you that they are looking at you so you can see their lips move. Make sure only 1 person is speaking at a time and there is no ambient noise such as the TV, music playing or outside noise such as traffic. If you do not completely hear what is being said to you asked the person to repeat themselves. 5. If you have any questions after you are discharged from rehab please do not hesitate to call me. OFFICE: [phone] CELL: [phone] Discharge Orders/Prescriptions Prescriptions: New ferrous sulfate [FeroSul] 325 mg (65 mg iron) Tablet 325 mg PO Q48H Qty: 30 0RF tramadol 50 mg Tablet 50 mg PO Q8H PRN (Reason: Pain Score 4-10) Qty: 20 0RF Rx Instructions: 50 mg orally as needed ;1 tab as needed for pain unrelieved with Tylenol every 8 hours. tamsulosin 0.4 mg Capsule 0.4 mg PO DAILY@1730 Qty: 30 0RF sertraline 50 mg Tablet 50 mg PO DAILY Qty: 30 0RF metoprolol tartrate 25 mg Tablet 25 mg PO BID Qty: 60 0RF Continued multivitamin 1 EACH tablet 1 ea PO DAILY acetaminophen 500 MG tablet 1,000 mg PO Q8H PRN PRN (Reason: Pain) glucosamine-chondroitin 250-200 mg tablet 1 tab PO BID Rx Instructions: give after food/meal ascorbic acid (vitamin C) 500 mg capsule 500 mg PO BID vitamin E (dl, acetate) 180 mg (400 unit) capsule 180 mg PO BID polyethylene glycol 3350 [Miralax] 17 gram/dose powder 17 g PO DAILY PRN (Reason: constipation) aspirin [Adult Low Dose Aspirin] 81 mg tablet,delayed release (DR/EC) 81 mg PO BID Qty: 1 0RF Rx Instructions: You will take this to prevent blood clots until 04/23/24 and then you can discontinue. Discontinued oxycodone 5 mg capsule 5 - 10 mg PO Q6H Referrals / Follow Up: Andreea Rivers [Other] - 04/18/24 8:00 am (Dr Yeager PA) Carroll Yeager MD [Non-Staff] - 05/09/24 12:45 pm () Jenifer Guo MD [Med Staff - Active Staff] - 04/27/24 3:00 pm Sanjay Holt MD [Primary Care Provider] - 04/30/24 10:20 am Disposition Disposition (needs filled in before D/C Order can be placed): Home Health Service
[2024-04-11] MEDS: Ferrous Sulfate 325 MG Tablet PO (17:25)
[2024-04-11] MEDS: Tamsulosin HCl 0.4 MG Capsule PO (17:25)
[2024-04-11 18:00] VITALS: BP 120/59; PULSE 84; RESP 17; TEMP 36.8; O2SAT 97
[2024-04-11 22:47] VITALS: BP 129/57; PULSE 82
[2024-04-11] MEDS: Senna/Docusate Sodium 1 Tablet 2 TABLET PO (22:47)
[2024-04-11] MEDS: Ensure Plus High Protein 120 ML LIQUID PO (22:51)
[2024-04-12] MEDS: Arthritis Pain Compound 60 CLICK TUBE TOPICAL (05:48)
[2024-04-12 05:56] VITALS: BP 118/59; PULSE 89; RESP 17; TEMP 36.5; O2SAT 96
[2024-04-12] MEDS: Sertraline 50 MG Tablet PO (08:06)
[2024-04-12 08:07] VITALS: BP 118/59; PULSE 89
[2024-04-12] MEDS: Metoprolol Tartrate 25 MG Tablet PO (08:07)
[2024-04-12] MEDS: Multivitamins,Therapeutic Tablet 1 TABLET PO (08:07)
[2024-04-12] MEDS: Cefadroxil 500 MG CAPSULE PO (08:07)
[2024-04-12] MEDS: Ensure Plus High Protein 120 ML LIQUID PO (08:07)
[2024-04-12] MEDS: Vitamin E 400 UNITS Capsule PO (08:07)
[2024-04-12] MEDS: Aspirin E.C. 81 MG Tablet PO (08:07)
--- NOTE | 2024-04-12 10:01 | PCM.DC.SUM ---
Providers Date of Admission: 03/30/24 Date of Discharge: 04/12/24 Primary Care Physician: Dr. Sanjay Holt MD none Reason For Visit: TOTAL LEFT KNEE REPLACEMENT Diagnosis Discharge Diagnosis (1) Physical debility: Status: Acute Code(s): R53.81 - Other malaise Plan: Continue PT/OT with [facility] at [place]. Also will have SN for Scott care. (2) Osteoarthritis: Status: Chronic Code(s): M19.90 - Unspecified osteoarthritis, unspecified site Qualifiers: Osteoarthritis location: multiple joints Osteoarthritis type: primary Qualified Code(s): M15.0 - Primary generalized (osteo)arthritis (3) History of knee replacement procedure of left knee: Status: Acute Code(s): Z96.652 - Presence of left artificial knee joint Plan: 03/25/[address] Carroll Yeager. (4) Urine retention: Status: Chronic Code(s): R33.9 - Retention of urine, unspecified Plan: Failed 2 voiding trials. The second voiding trial was done on Flomax. Being discharged with a Scott catheter. Did not want to straight cath. [facility] SN will monitor the Scott. Has a follow up appt with Dr. Guo. Known hx cystocele/urethrocele/uterovaginal prolapse. (5) Acute blood loss as cause of postoperative anemia: Status: Acute Code(s): D62 - Acute posthemorrhagic anemia (6) Anxiety: Status: Chronic Code(s): F41.9 - Anxiety disorder, unspecified Plan: Has a hx of anxiety/depression in the past and had been on sertraline until fall when she stopped the medication. She did well until the increased stress with the recent surgery and then urine retention/Scott and then had to come to rehab. BP and HR both elevated at admission to rehab. Had insomnia and felt anxious. Sertraline was restarted and at the time of DC she is sleeping well and eating well. She is much calmer. I think that some of the anxiety is due to the fact that her hearing is very poor and her hearing aids are not effective. She does not always hear/understand what is being said to her. She was seen by ST for memory difficulties but, the problem seems to be that she is not hearing what is being said to her, can not recall what she has been told because she never really heard what was said and she does not ask the speaker to repeat. Pt and family strongly encouraged to see an battery container finishing hand to get hearing aids that work better for her. (7) Tachycardia: Status: Resolved Code(s): R00.0 - Tachycardia, unspecified Plan: Resolved with treatment of anxiety and addition of a beta-marleen to control blood pressure and heart rate. Metoprolol will be continued at discharge. She was encouraged to purchase a blood pressure cuff and take her blood pressure couple times a day at different times and keep a record to take to her primary care doctor at her next visit. (8) Cystitis: Status: Resolved Code(s): N30.90 - Cystitis, unspecified without hematuria Plan: Related to urine retention/Scott catheter presents. Urine culture was positive for E. coli which was resistant to ampicillin and only intermediately sensitive to Augmentin but sensitive to all other drugs tested. She was treated with 7 days of cefadroxil. (9) History of hypertension: Status: Chronic Code(s): Z86.79 - Personal history of other diseases of the circulatory system Plan: Tells me that she does not have HTN and in fact her blood pressures are usually low. Persistently elevated while on rehab, despite treatment for anxiety. She also had resting tachycardia. She was started on metoprolol 12.5 mg twice daily which helped somewhat but she still had some elevated blood pressures and resting tachycardia. The dose was increased to 25 mg twice daily and at the time of discharge the blood pressure is well-controlled and the resting tachycardia has resolved. Metoprolol was continued at discharge and she will follow-up with her primary care physician to monitor her blood pressure. 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 DC home today with [facility] for PT/OT/SN. 2. She has follow-up scheduled with Dr. Carroll Yeager on 05/09/2024 at 12:45 PM. She still has sutures in the L knee. Will try and reach Dr. Yeager to see if he wants us to remove the sutures prior to her leaving rehab today. 3. She has follow-up scheduled with Dr. Jenifer Guo from urology on 04/27/2024 at 3 PM. 4. Follow-up has been scheduled with her PCP, Dr. Sanjay Holt, on 04/30/2024. 5. She will continue to use a WW at [place] for ambulation. 6. She will continue aspirin 81 mg p.o. twice daily for DVT prophylaxis for a total of 4 weeks postop. 7. Hemoglobin is stable at 10.0 at discharge from rehab and she is taking an iron supplement. Medications at Discharge Home Medications acetaminophen 500 mg tablet 1,000 mg PO Q8H PRN PRN Pain 03/30/18 multivitamin 1 ea PO DAILY supplement 03/30/18 ascorbic acid (vitamin C) 500 mg capsule 500 mg PO BID supplement 03/30/24 glucosamine-chondroitin 250 mg-200 mg tablet 1 tab PO BID supplement 03/30/24 polyethylene glycol 3350 17 gram/dose oral powder (Miralax) 17 g PO DAILY PRN constipation 03/30/24 vitamin E (dl, acetate) 180 mg (400 unit) capsule 180 mg PO BID supplement 03/30/24 aspirin 81 mg tablet,delayed release (Adult Low Dose Aspirin) 81 mg PO BID DVT prophylaxis #1 TAB 04/11/24 ferrous sulfate 325 mg (65 mg iron) tablet (FeroSul) 325 mg PO Q48H #30 tabs 04/11/24 metoprolol tartrate 25 mg tablet 25 mg PO BID #60 tabs 04/11/24 sertraline 50 mg tablet 50 mg PO DAILY #30 tabs 04/11/24 tamsulosin 0.4 mg capsule 0.4 mg PO DAILY@1730 #30 caps 04/11/24 tramadol 50 mg tablet 50 mg PO Q8H PRN Pain Score 4-10 #20 tabs 04/11/24 Hospital Course Operations total knee replacement (Left knee replacement on 03/25/[address] Carroll Yeager. ) Procedures None Summary of Care Provided Minutes Spent on Discharge: 35 Hospital Course: GIANA PETERSON, is a 78 YO F with a PMH of anxiety, jaw fracture (traumatic in 2022), TIA in 2013, cystocele/urethrocele/uterovaginal prolapse, HTN (not taking medication for this at the time of admission to rehab), presbycusis (has hearing aids but, they are not adequate) and osteoarthritis who underwent a left total knee replacement on 03/25/[address] Yeager at [facility]. Post operatively she had tachycardia and she was treated with Xanax and IVF's. An ECHO and cardiac labs were ordered. Troponins were negative and the EKG had nonspecific ST and T wave abnormalities only. ECHO showed a mildly dilated LV with stage 1 diastolic dysfunction. EF was 72%. There were no wall motion abnormalities and the atria were of normal size. There was mild TR and mild MR. She had a Scott cath inserted post operatively for urine retention. It was removed on 03/26 and reinserted on 03/28. She had a Scott present at admission to rehab. She lives alone and was Independent with a ADL's prior to the surgery. She was transferred to the acute inpt rehab unit at [facility] on 03/30/24 for 3 hours of therapy daily to restore function/independence at or near her level prior to the TKA. UA at admission to rehab showed 0-5 WBCs per high-power field with no bacteria. Hemoglobin was 9.9 at admission to rehab and is 10 at discharge from rehab. Platelets were elevated at 523,000 at admission to rehab and at discharge are 680,000. Giana was quite anxious at admission to rehab. She had insomnia and decreased appetite. She was restless and had an elevated BP and resting tachycardia. She had been taking sertraline in the past for treatment of anxiety/depression. She stopped sertraline in the fall 2022 and had been doing well until the recent surgery. Sertraline was restarted and she has tolerated this medication well with no adverse side effects. She began sleeping better at night and her appetite improved. Despite improvement in anxiety the elevated heart rate and blood pressures continued and she was started on metoprolol 12.5 mg twice daily. This was later adjusted to 25 mg twice daily. Blood pressure for 24 hours prior to discharge has ranged from 118/59 to 135/55. The heart rate has ranged from 82-89. She tells me that her BP is always low and she does not have HTN. ECHO shows diastolic dysfunction. I suspect that her BP is elevated when she is anxious which may be more often than she or her family realize. I suspect her poor hearing contributes to her anxiety. She can understand what is being said to her if she is in a quiet room with 1 other person who is looking directly at her when speaking. If there is any ambient noise she can not hear what is being said. She does not ask the speaker to repeat if she does not hear and therefore she asks the same questions over and over and has to be repeatedly instructed how to complete her activities in therapy. She was seen by ST and they worked on some memory issues but, truly the biggest problem is her hearing and not her memory. While on rehab she developed a catheter related UTI due to E. Coli. She was treated with 7 days of Cefadoxil. UA 1 day prior to discharge showed 0-5 white blood cells with no bacteria. She denies suprapubic pain and was afebrile. The urine in the Scott tubing was pale yellow and clear. She failed her first voiding trial on rehab and the Scott catheter was reinserted. She was started on Flomax 0.4 mg daily and another voiding trial was done after she had received 3 doses of Flomax. She also failed that voiding trial. We attempted to teach her how to straight cath however she was uncomfortable with this and asked to have the Scott reinserted. She is going home with a Scott catheter and will have a a nurse to monitor the Scott at home post DC. She has a follow up appt with Dr. Sari sotomayor. Giana was discharged home on 04/12/24. She will have home health care with [facility] home health care for PT/OT/SN. She had no DME needs at discharge. Family has arranged for someone to be with her for the first 1-2 weeks post DC. At the time of discharge she has ambulated up to 400 feet on various surfaces at mod I with a front wheeled walker. She is able to complete transfers from various surfaces at mod I. She is able to ascend/descend two 6 inch steps with 1 handrail at light contact-guard assist so that she may enter her home. She is mod I with eating, grooming, upper body dressing, lower body dressing, toileting and toilet transfer. She is supervision/set up for bathing and prefers to sponge bathe rather than getting in the shower. She has a follow up appt with Dr. Yeager's PA to remove the sutures. She also has a follow up scheduled with Dr. Yeager in May. She will follow-up with her PCP, Dr. Sanjay Holt, on 04/30/2024 at 10:20 AM. Physical Exam Const alert, oriented x3 and no apparent distress Constitutional Narrative: Makes good eye contact with me. She is much calmer than she was at admission and she tells me she feels better. She now realizes she was anxious even prior to the recent surgery because of the chronic pain since August and fear of falling. General Appearance: cooperative HEENT moist oral mucous membranes HEENT Narrative: no thrush Neck Neck Narrative: . MRA of the neck in 2013 showed no significant carotid disease. May need to re-image the carotids with an US as an OP. defer to PCP. Resp normal respiratory effort, normal air movement and clear to auscultation bilaterally Effort and Inspection: Negative for tachypneic Cardio regular rate, regular rhythm, no murmurs, no rub and no gallops Cardio Narrative: No ectopy GI normal to inspection, nondistended, normoactive bowel sounds, soft to palpation and non-tender GI Narrative: No guarding with palpation. Having regular bowel movements. Denies constipation/diarrhea/abdominal pain. Extremity Extremity Narrative: No ankle edema. There has been marked improvement in the edema of the left knee. The incision is intact with no dehiscence, no mel-incisional erythema and no discharge. 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 Psych Psych Narrative: Much calmer than at admission to rehab. Makes good eye contact. Very pleasant and talkative. Appreciative of all the help she has had in rehab. Now able to recognize that she has been anxious and that the Sertraline is helping. She worries a lot about things.......her big worry now is the Scott catheter. Appearance: appropriate Attitude: No agitated Activity / Motor Behavior: Negative for restless Weight / BMI Weight Weight: 134 lb Body Mass Index (BMI) 24.6 ABG / Lab / Microbiology Data 04/07/24 05:45 04/07/24 05:45 Laboratory: Laboratory Results - last 24 hr 04/11/24 12:10: Urine Color Yellow, Urine Clarity Sl. Cloudy, Urine pH 6.5, Ur Specific [place] 1.010, Urine Protein Negative, Urine Glucose (UA) Normal, Urine Ketones Negative, Urine Occult Blood 10 H, Urine Nitrite Negative, Urine Bilirubin Negative, Urine Urobilinogen Normal, Ur Leukocyte Esterase 100 H, Urine RBC 0-5 SEEN, Urine WBC 0-5 SEEN, Ur Squamous Epith Cells 0-5 SEEN, Urine Bacteria 0 SEEN, Urine Mucus 0 SEEN Microbiology: Microbiology 04/04/24 03:30 Urine Catheter - Catheter Urine Culture - Final Presumptive E. coli 03/30/24 14:50 Urine Catheter - Scott Urine Culture - Final Corynebact. pseudodiphtheritic D/C Instructions Discharge Diet: No restrictions Weight Bearing Status: Full weight bearing Keep extremity elevated above heart level: Left Leg Call your doctor if your incision/area has: Continuous Slow Oozing, Sudden Increased Bleeding, Increased Pain/ Swelling, Increased Redness, Foul Smelling Discharge and Swelling at the incision site Call your doctor if you observe: Fever of 101 or Higher, Shortness of breath, Dizziness, Fainting spells, Swelling in the ankles, Chest pain, Increased palpitations (irregular heartbeat), Calf discomfort and Uncontrolled pain Suture Line Care: Avoid Pulling/Pushing and Avoid Pinching/Bending Cleanse incision/area with: Soap & Water and - (No dressing is necessary unless you are close or irritating the incision and then you may put a dry dressing over the incision) Pending Tests Upon Discharge: None When: You have several doctors appointment scheduled for you....... they are listed at the end of this document. Meaningful Use Info Meaningful Use Meaningful Use Diagnoses (Choose all that apply): None applicable Ischemic Stroke Statin Dosing Therapy Reference: STATIN DOSE THERAPY REFERENCE: * Patients > 75 years receive moderate or high dose statin therapy. * Patients 75 years or YOUNGER should receive HIGH intensity statin dose unless contraindicated. You will be required to document reason for non-treatment if statin daily dose does not meet guidelines. HIGH DOSE STATIN THERAPY DAILY Atorvastatin > than or = to 40 mg Rosuvastatin > than or = to 20 mg Amlodipine + Atorvastatin > than or = to 2.5/40 mg Ezetimibe + Simvastatin 10/80 mg Simvastatin 80mg Discharge Plan Admission Admit Date/Time: 03/30/24 12:13 Primary Reason for Your Visit: Debility post left total knee replacement Attending Provider: Alejandra Grimm Primary Care Provider: Sanjay Holt Instructions Patient Instructions: Your Body's Response to Anxiety, Pelvic Organ Prolapse, Understanding Anxiety Disorders, Caring for Your Incision, ED Urinary Retention, Female Additional Instructions / Restrictions: 1. You have done very well in therapy. I think you will do very well at home. Unfortunately you will have to be discharged with a Scott catheter. We have done a few voiding trials and you have failed all of them. The last voiding trial was done on Flomax which is a medication that can help the flow of urine. After a little longer on this medication it may work. An appt has been made for you to follow up with Dr. Jenifer Guo from urology after discharge. She will likely remove the Scott catheter at your next office visit and do a voiding trial. If you are still unable to urinate she will discuss options with you. In the meantime the Scott catheter will need to stay in. Anytime you have a foreign body present in your body you are at risk for infection but with urine retention if left untreated you will be at risk for urinary tract infection as well and also kidney failure. We are going to have a nurse check on you periodically at home to make sure you are not getting an infection. If you develop a fever, shaking chills, night sweats or pain in the pelvic area you will need to call your primary care doctor or call home health. You will also need to call if you have blood in the urine, the urine is foul-smelling, there is a change in the color of the urine or the urine is cloudy. We checked your urine prior to discharge from rehab and you have no sign of urinary tract infection at this time. You finished a course of an antibiotic called cefadroxil to treat the urinary tract infection you had while on rehab. 2. Your kidney function has been good on rehab. You have not had fevers. 3. You are a little anemic due to blood loss from the surgery. We have you on an iron supplement to help build the blood count back up. Iron can cause constipation so if you are having problems with constipation you may need to start a stool softener.....I recommend Metamucil or Citrucel or MiraLAX. 4. You are missing a lot of information because you are not hearing well. It makes you seem very forgetful when in fact your can not remember things because you never heard what was being said to you. Your hearing is going to be worse when you are in a room full of people, when there is music playing, when there is outside noise, when more than one person is talking. Make sure that when someone is talking with you that they are looking at you so you can see their lips move. Make sure only 1 person is speaking at a time and there is no ambient noise such as the TV, music playing or outside noise such as traffic. If you do not completely hear what is being said to you asked the person to repeat themselves. 5. If you have any questions after you are discharged from rehab please do not hesitate to call me. OFFICE: [phone] CELL: [phone] Discharge Orders/Prescriptions Prescriptions: New ferrous sulfate [FeroSul] 325 mg (65 mg iron) Tablet 325 mg PO Q48H Qty: 30 0RF tramadol 50 mg Tablet 50 mg PO Q8H PRN (Reason: Pain Score 4-10) Qty: 20 0RF Rx Instructions: 50 mg orally as needed ;1 tab as needed for pain unrelieved with Tylenol every 8 hours. tamsulosin 0.4 mg Capsule 0.4 mg PO DAILY@1730 Qty: 30 0RF sertraline 50 mg Tablet 50 mg PO DAILY Qty: 30 0RF metoprolol tartrate 25 mg Tablet 25 mg PO BID Qty: 60 0RF Continued multivitamin 1 EACH tablet 1 ea PO DAILY acetaminophen 500 MG tablet 1,000 mg PO Q8H PRN PRN (Reason: Pain) glucosamine-chondroitin 250-200 mg tablet 1 tab PO BID Rx Instructions: give after food/meal ascorbic acid (vitamin C) 500 mg capsule 500 mg PO BID vitamin E (dl, acetate) 180 mg (400 unit) capsule 180 mg PO BID polyethylene glycol 3350 [Miralax] 17 gram/dose powder 17 g PO DAILY PRN (Reason: constipation) aspirin [Adult Low Dose Aspirin] 81 mg tablet,delayed release (DR/EC) 81 mg PO BID Qty: 1 0RF Rx Instructions: You will take this to prevent blood clots until 04/23/24 and then you can discontinue. Discontinued oxycodone 5 mg capsule 5 - 10 mg PO Q6H Referrals / Follow Up: Andreea Rivers [Other] - 04/18/24 8:00 am (Dr Yeager PA) Carroll Yeager MD [Non-Staff] - 05/09/24 12:45 pm () Jenifer Guo MD [Med Staff - Active Staff] - 04/27/24 3:00 pm Sanjay Holt MD [Primary Care Provider] - 04/30/24 10:20 am Disposition Disposition (needs filled in before D/C Order can be placed): Home Health Service Charges/Coding Visit Charges Inpatient E&M: 89288 Disch Hosp >30min
[2024-04-12] MEDS: Acetaminophen 500 MG Tablet 1000 MG PO (11:35)
--- NOTE | 2024-04-12 14:55 | NURSING ---
discharged home with family. discharge instructions, medications and appointments reviewed with pt and family. denies questions or concerns
== END 2024-04-12 13:45 | disposition home health service (06) | DRG 560 ==
PROVIDERS: Admitting Provider Internal Medicine; PCP Family Medicine; Visit Provider Internal Medicine
DX: Z47.1 Aftercare following joint replacement surgery (principal); D62 Acute posthemorrhagic anemia; T83.511A Infection and inflammatory reaction due to indwelling urethral catheter, initial encounter; F41.9 Anxiety disorder, unspecified; M15.0 Primary generalized (osteo)arthritis; R33.9 Retention of urine, unspecified; Z79.82 Long term (current) use of aspirin; N81.4 Uterovaginal prolapse, unspecified; G47.00 Insomnia, unspecified; R03.0 Elevated blood-pressure reading, without diagnosis of hypertension; N30.90 Cystitis, unspecified without hematuria; B96.20 Unspecified Escherichia coli [E. coli] as the cause of diseases classified elsewhere; Z79.899 Other long term (current) drug therapy; Z96.652 Presence of left artificial knee joint
CPT/HCPCS: 36415; 74018; 80048; 80053; 80061; 81001; 83735; 84100; 85014; 85018; 85025; 85027; 87077; 87086; 87088; 87186; 92507; 92523; 93971; 97110; 97116; 97129; 97130; 97162; 97166; 97530; 97535; 97802